=== PATIENT | male | born 1960 | race American Indian/Alaskan Native ===

== ENCOUNTER 2017-10-31 11:41 | Emergency (ER) | payer MEDICARE ==
[2017-10-31 12:50] LABS: Hematocrit 35.3 % (35.5-45.6); Hemoglobin 11.2 gm/dl (11.8-15.2); Mean Corpuscular HGB Conc 32 % (32-34); Mean Corpuscular Hemoglobin 27 pg (28-32); Mean Corpuscular Volume 84 fl (84-94); Platelet Count 132 K/mm3 (140-440)
[2017-10-31 12:52] LABS: Red Cell Distribution Width 29.4 % (13.2-15.2)
[2017-10-31 13:10] LABS: Albumin 4.3 g/dL (3.9-5); Calcium 8.8 mg/dL (8.4-10.2)
[2017-10-31] MEDS ORDERED: ZOFRAN ODT PO ONE (13:34)
--- NOTE | 2017-10-31 13:39 | Emergency Department Report ---
ED General Adult HPI - General Chief complaint: Nausea/Vomiting/Diarrhea Stated complaint: DIALYSIS Time Seen by Provider: 10/31/17 13:10 Source: patient Mode of arrival: Wheelchair Limitations: No Limitations - History of Present Illness Initial comments: This is a 57-year-old gentleman who is not known to this provider previously, who presents to the ER with a complaint of nausea that is now resolved, and requesting dialysis. He has no headache, neck pain, chest pain, abdominal pain or shortness of breath. He has no urinary symptoms. His nausea has resolved, and therefore does not radiate anywhere, and does not have exacerbating or relieving factors. He is visiting from out of town and does not have a local nephrology specialist. -: Gradual Consistency: now resolved Improves with: none Worsens with: none Associated Symptoms: nausea/vomiting. denies: confusion, chest pain, cough, diaphoresis, fever/chills, headaches, loss of appetite, malaise, rash, seizure, shortness of breath, syncope, weakness - Related Data Home Medications Medication Instructions Recorded Confirmed Last Taken Atorvastatin Calcium [Lipitor] 10 mg PO QHS 11/02/17 11/02/17 10/31/17 22:00 Calcium Acetate [Phoslo] 1,334 mg PO AC 11/02/17 11/02/17 10/31/17 Carvedilol [Coreg] 6.25 mg PO BID 11/02/17 11/02/17 10/31/17 Levothyroxine Sodium [Synthroid] 112 mcg PO QAM 11/02/17 11/02/17 11/02/17 08:40 hydrALAZINE [Apresoline] 50 mg PO BID 11/02/17 11/02/17 10/31/17 22:00 Previous Rx's Medication Instructions Recorded Last Taken Type Ondansetron [Zofran Odt] 4 mg PO Q8HR PRN #20 tab.rapdis 10/31/17 Unknown Rx Allergies Allergy/AdvReac Type Severity Reaction Status Date / Time Sulfa (Sulfonamide AdvReac Shortness Verified 10/31/17 11:51 Antibiotics) of Breath ED Review of Systems ROS: Stated complaint: DIALYSIS Other details as noted in HPI Comment: All other systems reviewed and negative ED Past Medical Hx - Past Medical History Previous Medical History?: Yes Hx Hypertension: Yes Hx Congestive Heart Failure: Yes Hx Renal Disease: Yes - Surgical History Past Surgical History?: Yes Additional Surgical History: AV fistula - Social History Smoking Status: Never Smoker Substance Use Type: None - Medications Home Medications: Home Medications Medication Instructions Recorded Confirmed Last Taken Type Ondansetron [Zofran Odt] 4 mg PO Q8HR PRN #20 tab.rapdis 10/31/17 11/02/17 Unknown Rx Atorvastatin Calcium [Lipitor] 10 mg PO QHS 11/02/17 11/02/17 10/31/17 22:00 History Calcium Acetate [Phoslo] 1,334 mg PO AC 11/02/17 11/02/17 10/31/17 History Carvedilol [Coreg] 6.25 mg PO BID 11/02/17 11/02/17 10/31/17 History Levothyroxine Sodium [Synthroid] 112 mcg PO QAM 11/02/17 11/02/17 11/02/17 08: 40 History hydrALAZINE [Apresoline] 50 mg PO BID 11/02/17 11/02/17 10/31/17 22:00 History ED Physical Exam - General Limitations: No Limitations General appearance: alert, in no apparent distress - Head Head exam: Present: atraumatic, normocephalic - Eye Eye exam: Present: normal appearance. Absent: nystagmus - ENT ENT exam: Present: normal exam, normal orophraynx, mucous membranes moist, normal external ear exam - Neck Neck exam: Present: normal inspection, full ROM. Absent: tenderness, meningismus - Respiratory Respiratory exam: Present: normal lung sounds bilaterally, other (there is a left-sided atrial pacer noted, with no redness, pus or streaking). Absent: respiratory distress, wheezes, rales, rhonchi, stridor, chest wall tenderness - Cardiovascular Cardiovascular Exam: Present: regular rate, normal rhythm, normal heart sounds. Absent: bradycardia, tachycardia, irregular rhythm, systolic murmur, diastolic murmur, rubs, gallop - GI/Abdominal GI/Abdominal exam: Present: soft, normal bowel sounds. Absent: distended, tenderness, guarding, rebound, rigid, pulsatile mass - Rectal Rectal exam: Present: deferred - Extremities Exam Extremities exam: Present: normal inspection, full ROM, other (there is an upper extremity graft with no redness, pus or streaking. Appropriate thrill is noted. It is nontender.). Absent: calf tenderness - Back Exam Back exam: Present: normal inspection, full ROM. Absent: tenderness, CVA tenderness (R), paraspinal tenderness, vertebral tenderness - Neurological Exam Neurological exam: Present: alert, oriented X3, CN II-XII intact, normal gait, other (Extraocular movements intact. Tongue midline. No facial droop. Facial sensation intact to light touch in the V1, V2, V3 distribution bilaterally. 5 and 5 strength in 4 extremities.. Sensation is intact to light touch in 4 extremities.). Absent: motor sensory deficit - Psychiatric Psychiatric exam: Present: normal affect, normal mood - Skin Skin exam: Present: warm, dry, intact, normal color. Absent: rash ED Course Vital Signs 10/31/17 10/31/17 11:48 14:32 Temperature 97.6 F Pulse Rate 98 H 95 H Respiratory 24 18 Rate Blood Pressure 141/105 Blood Pressure 134/97 [Left] O2 Sat by Pulse 98 96 Oximetry ED Medical Decision Making - Lab Data Result diagrams: 10/31/17 11:59 10/31/17 11:59 Vital Signs 10/31/17 11:48 Temperature 97.6 F Pulse Rate 98 H Respiratory 24 Rate Blood Pressure 141/105 O2 Sat by Pulse 98 Oximetry Lab Results 10/31/17 10/31/17 Range/Units 11:59 11:59 WBC 4.2 L (4.5-11.0) K/mm3 RBC 4.20 (3.65-5.03) M/mm3 Hgb 11.2 L (11.8-15.2) gm/dl Hct 35.3 L (35.5-45.6) % MCV 84 (84-94) fl MCH 27 L (28-32) pg MCHC 32 (32-34) % RDW 29.4 H (13.2-15.2) % Plt Count 132 L (140-440) K/mm3 Sodium 143 (137-145) mmol/L Potassium 4.3 (3.6-5.0) mmol/L Chloride 100.2 (98-107) mmol/L Carbon Dioxide 22 (22-30) mmol/L Anion Gap 25 mmol/L BUN 47 H (9-20) mg/dL Creatinine 8.5 H (0.8-1.5) mg/dL Estimated GFR 8 ml/min BUN/Creatinine Ratio 6 % Glucose 90 (75-100) mg/dL Calcium 8.8 (8.4-10.2) mg/dL Total Bilirubin 1.40 H (0.1-1.2) mg/dL AST 32 (5-40) units/L ALT 30 (7-56) units/L Alkaline Phosphatase 114 (35-129) units/L Total Protein 6.9 (6.3-8.2) g/dL Albumin 4.3 (3.9-5) g/dL Albumin/Globulin Ratio 1.7 % - EKG Data When compared to previous EKG there are: previous EKG unavailable 10/31/17 13:36 Atrial paced rhythm, 93 beats for minute, borderline rightward axis, good capture, VT interval appropriate, QTC prolonged, abnormal EKG, not morphologically consistent with STEMI - Medical Decision Making Differential diagnosis, including but not limited to, end-stage renal disease on dialysis, hyperkalemia, uremia, azotemia, chronic renal insufficiency Assessment and plan: 57-year-old gentleman who reports nausea that has now resolved. He is currently sleeping in his room when I go in to examine him. His laboratory studies do not demonstrate significant hyperkalemia, and he has evidence of chronic renal insufficiency. However he is not hypertensive he has no crackles or rales, he is saturating well, and he is not demonstrating signs of uremic encephalopathy. He is not a emergent dialysis at this time. His EKG demonstrates an atrial paced rhythm and he has no chest pain or abdominal pain currently. He will be discharged with Zofran and instructed to follow up with outpatient nephrology. There does not appear to be an emergent condition at this time. Critical care attestation.: If time is entered above; I have spent that time in minutes in the direct care of this critically ill patient, excluding procedure time. ED Disposition Clinical Impression: ESRD (end stage renal disease) Disposition: -01 TO HOME OR SELFCARE Is pt being admited?: No Does the pt Need Aspirin: No Condition: Stable Instructions: Chronic Kidney Disease (ED) Additional Instructions: Take the nausea medication as needed/directed. Follow up with any of the listed kidney doctors to arrange outpatient dialysis. Follow up within the next 3-5 days. Return to the ER right away with New pain, Worsening pain, migration of p fevers, chills, lethargy, irritability , projectile vomiting, change in mental status, confusion, inability to tolerate liquid feeds. Prescriptions: Ondansetron [Zofran Odt] 4 mg PO Q8HR PRN #20 tab.rapdis PRN Reason: Nausea Referrals: DONOVAN VIDAL MD [Staff Physician] - 3-5 Days OSMAN MARES MD [Staff Physician] - 3-5 Days
[2017-10-31 14:33] VITALS: BP 134/97
== END 2017-10-31 14:49 | disposition home or self-care (01) ==
LOC: ED 11:41
DX: I13.2 Hypertensive heart and chronic kidney disease with heart failure and with stage 5 chronic kidney disease, or end stage renal disease (principal); N18.6 End stage renal disease; I50.9 Heart failure, unspecified; Z99.2 Dependence on renal dialysis; Z88.2 Allergy status to sulfonamides
CPT/HCPCS: 36415; 80053; 85027; 93005; 93010; 99283; Q0162

== ENCOUNTER 2017-11-01 08:46 | Inpatient (IN) | payer MEDICARE ==
--- NOTE | 2017-11-01 11:04 | Emergency Department Report ---
HPI - General Chief Complaint: Dyspnea/Respdistress Time Seen by Provider: 11/01/17 10:48 - HPI HPI: Room 26 The patient is a 57-year-old male presents with the chief complaint of abdominal pain and missed dialysis. Patient states he came to the emergency department today because he noticed epigastric abdominal pain since yesterday as well. Patient describes the pain as a epigastric soreness with movement. The patient also states he's had a cough and rhinorrhea. Location: [See above] Duration: [See above] Quality: Soreness Severity: Moderate Modifying factors: Moving causes pain Context: [see above] Mode of transportation: [not driving] ED Past Medical Hx - Past Medical History Hx Hypertension: Yes Hx Congestive Heart Failure: Yes Hx Renal Disease: Yes - Surgical History Additional Surgical History: AV fistula - Family History Family history: no significant - Social History Smoking Status: Never Smoker Substance Use Type: None - Medications Home Medications: Home Medications Medication Instructions Recorded Confirmed Last Taken Type Ondansetron [Zofran Odt] 4 mg PO Q8HR PRN #20 tab.rapdis 10/31/17 Unknown Rx ED Review of Systems ROS: Stated complaint: PAIN WORSEN Other details as noted in HPI Constitutional: no symptoms reported Eyes: denies: eye pain ENT: other (rhinorrhea). denies: throat pain Respiratory: cough Cardiovascular: denies: chest pain Endocrine: no symptoms reported Gastrointestinal: abdominal pain Genitourinary: denies: testicular pain Musculoskeletal: denies: back pain Neurological: denies: headache Physical Exam - Physical Exam Vital Signs: Vital Signs 11/01/17 11/01/17 11/01/17 09:08 10:00 10:30 Temperature 97.6 F Pulse Rate 94 H 94 H 92 H Respiratory 31 H 27 H Rate Blood Pressure 140/102 150/115 147/113 O2 Sat by Pulse 96 100 97 Oximetry 11/01/17 10:47 Temperature Pulse Rate Respiratory 22 Rate Blood Pressure O2 Sat by Pulse 100 Oximetry Physical Exam: GENERAL: The patient is well-developed well-nourished male lying on stretcher not appearing to be in acute distress. [] HEENT: Normocephalic. Atraumatic. Extraocular motions are intact. Patient has moist mucous membranes. NECK: Supple. Trachea midline CHEST/LUNGS: Clear to auscultation. There is no respiratory distress noted. HEART/CARDIOVASCULAR: Regular. There is no tachycardia. There is no gallop rub or murmur. ABDOMEN: Abdomen is soft, with midepigastric tenderness to palpation. There is no rebound or guarding. Patient has normal bowel sounds. There is no abdominal distention. SKIN: There is no rash. There is no edema. There is no diaphoresis. NEURO: The patient is awake, alert, and oriented. The patient is cooperative. The patient has normal speech MUSCULOSKELETAL: There is no evidence of acute injury. ED Course Vital Signs 11/01/17 11/01/17 11/01/17 09:08 10:00 10:30 Temperature 97.6 F Pulse Rate 94 H 94 H 92 H Respiratory 31 H 27 H Rate Blood Pressure 140/102 150/115 147/113 O2 Sat by Pulse 96 100 97 Oximetry 11/01/17 10:47 Temperature Pulse Rate Respiratory 22 Rate Blood Pressure O2 Sat by Pulse 100 Oximetry - Consultations Consultation #1: 11/01/17 14:01 Nephrology paged ED Medical Decision Making - Lab Data Result diagrams: 11/01/17 11:51 11/01/17 11:51 Laboratory Tests 11/01/17 11/01/17 11/01/17 11:51 11:51 11:51 WBC 5.0 RBC 4.47 Hgb 11.8 Hct 37.6 MCV 84 MCH 26 L MCHC 31 L RDW 29.0 H Plt Count 148 Sodium 142 Potassium 6.1 H* D Chloride 94.3 L Carbon Dioxide 15 L D Anion Gap 39 BUN 58 H Creatinine 9.3 H Estimated GFR 7 BUN/Creatinine Ratio 6 Glucose 34 L* Calcium 8.7 Total Bilirubin 2.70 H AST 133 H ALT 83 H Alkaline Phosphatase 162 H Total Protein 7.0 Albumin 4.3 Albumin/Globulin Ratio 1.6 Amylase 113 Lipase 36 - EKG Data -: EKG Interpreted by Md Rate: normal - EKG Data When compared to previous EKG there are: previous EKG unavailable (paced rhythm. No peaked T waves.) Interpretation: nonspecific ST-T wave nitesh (T-wave inversion in lead 3) - Radiology Data Radiology results: report reviewed (CT abdomen and pelvis, chest x-ray), image reviewed (CT abdomen and pelvis, chest x-ray) FINAL REPORT EXAM: CT ABDOMEN PELVIS WO CON HISTORY: epigastric abdominal pain TECHNIQUE: CT of the abdomen and pelvis was performed without intravenous contrast. Reconstructions were included in the coronal and sagittal planes. PRIORS: None. FINDINGS: Lower thorax: There is a noncalcified right lower lobe 3 millimeter pulmonary nodule on series 2, image 10. Linear opacities are seen within the lingula. Trace pericardial fluid is seen. A cardiac pacemaker is seen. Multi chamber cardiac enlargement is noted. Liver: The liver is normal in attenuation. No intrahepatic biliary duct dilation. No focal hepatic lesions. Nodular contour of the liver is noted. The liver is enlarged measuring 22.7 centimeters. Gallbladder/ biliary system: Cholelithiasis is seen. There is pericholecystic fluid. No gallbladder wall thickening. The common bile duct appears nondilated. Spleen: No splenic lesions are seen. Pancreas: No pancreatic lesions are seen. No pancreatic duct dilation. Kidneys: Numerous probable simple bilateral renal cysts are seen. 5 millimeter hyper attenuating lesion is seen in the inferior pole of the left kidney likely representing a small hemorrhagic cyst. No hydronephrosis. No renal or ureteral calcifications. Adrenal glands: No adrenal masses. Vasculature: The abdominal aorta is nondilated. Atherosclerotic calculi are seen in the abdominal aorta. Lymph nodes : No enlarged lymph nodes are seen in the abdomen or pelvis. Bowel, mesentery, peritoneum: No bowel obstruction. There is a moderate to large volume of scattered ascites. No free air. A catheter is seen extending from the peritoneum to the spinal canal and terminates at the T11-12 level. There disruption of the catheter along the right flank subcutaneous tissues. The appendix is normal. No colonic diverticulosis. No bowel wall thickening. Urinary bladder: No filling defects are seen. Pelvis: Normal anatomy is noted. No masses. Abdominal wall: Bilateral fat containing inguinal hernias are seen. Body wall edema is seen. Focal area of soft tissue stranding in the right anterior abdominal wall may represent a site of injection or contusion. Bones: Degenerative changes are seen in the spine. Old right femoral fracture is noted with an old hardware tract within the right femur. IMPRESSION: 1. Findings concerning for hepatic cirrhosis with a moderate to large volume of scattered ascites. Hepatomegaly. 2. Cholelithiasis. Cannot completely exclude acute cholecystitis given the presence of pericholecystic fluid/ascites. 3. Numerous probable simple bilateral renal cysts. A single hyper attenuating lesion in the inferior pole of the left kidney likely represents a proteinaceous or hemorrhagic cyst. 4. Catheter extending from the spinal canal to the peritoneum with disruption of the catheter in the right flank. 5. Bilateral fat containing inguinal hernias. 6. Multi chamber cardiac enlargement and trace pericardial fluid. 7. Noncalcified 3 millimeter right lower lobe pulmonary nodule. Consider further evaluation with chest CT to exclude other nodules. Transcribed By: MG Dictated By: BILLY HERRMANN MD Electronically Authenticated By: BILLY HERRMANN MD Signed Date/Time: 11/01/171129 DD/ 29 TD/TT: 11/01/171129 - Differential Diagnosis incision renal disease, pancreatitis, volume overload Critical care attestation.: If time is entered above; I have spent that time in minutes in the direct care of this critically ill patient, excluding procedure time. ED Disposition Clinical Impression: ESRD (end stage renal disease), Hyperkalemia, Abdominal pain Disposition: OP ADMIT IP TO THIS HOSP Is pt being admited?: Yes Does the pt Need Aspirin: No Condition: Fair Time of Disposition: 14:23 (hospitalist notified (Dr. Landeros))
--- NOTE | 2017-11-01 11:36 | Cat Scan Report ---
FINAL REPORT EXAM: CT ABDOMEN PELVIS WO CON HISTORY: epigastric abdominal pain TECHNIQUE: CT of the abdomen and pelvis was performed without intravenous contrast. Reconstructions were included in the coronal and sagittal planes. PRIORS: None. FINDINGS: Lower thorax: There is a noncalcified right lower lobe 3 millimeter pulmonary nodule on series 2, image 10. Linear opacities are seen within the lingula. Trace pericardial fluid is seen. A cardiac pacemaker is seen. Multi chamber cardiac enlargement is noted. Liver: The liver is normal in attenuation. No intrahepatic biliary duct dilation. No focal hepatic lesions. Nodular contour of the liver is noted. The liver is enlarged measuring 22.7 centimeters. Gallbladder/ biliary system: Cholelithiasis is seen. There is pericholecystic fluid. No gallbladder wall thickening. The common bile duct appears nondilated. Spleen: No splenic lesions are seen. Pancreas: No pancreatic lesions are seen. No pancreatic duct dilation. Kidneys: Numerous probable simple bilateral renal cysts are seen. 5 millimeter hyper attenuating lesion is seen in the inferior pole of the left kidney likely representing a small hemorrhagic cyst. No hydronephrosis. No renal or ureteral calcifications. Adrenal glands: No adrenal masses. Vasculature: The abdominal aorta is nondilated. Atherosclerotic calculi are seen in the abdominal aorta. Lymph nodes: No enlarged lymph nodes are seen in the abdomen or pelvis. Bowel, mesentery, peritoneum: No bowel obstruction. There is a moderate to large volume of scattered ascites. No free air. A catheter is seen extending from the peritoneum to the spinal canal and terminates at the T11-12 level. There disruption of the catheter along the right flank subcutaneous tissues. The appendix is normal. No colonic diverticulosis. No bowel wall thickening. Urinary bladder: No filling defects are seen. Pelvis: Normal anatomy is noted. No masses. Abdominal wall: Bilateral fat containing inguinal hernias are seen. Body wall edema is seen. Focal area of soft tissue stranding in the right anterior abdominal wall may represent a site of injection or contusion. Bones: Degenerative changes are seen in the spine. Old right femoral fracture is noted with an old hardware tract within the right femur. IMPRESSION: 1. Findings concerning for hepatic cirrhosis with a moderate to large volume of scattered ascites. Hepatomegaly. 2. Cholelithiasis. Cannot completely exclude acute cholecystitis given the presence of pericholecystic fluid/ascites. 3. Numerous probable simple bilateral renal cysts. A single hyper attenuating lesion in the inferior pole of the left kidney likely represents a proteinaceous or hemorrhagic cyst. 4. Catheter extending from the spinal canal to the peritoneum with disruption of the catheter in the right flank. 5. Bilateral fat containing inguinal hernias. 6. Multi chamber cardiac enlargement and trace pericardial fluid. 7. Noncalcified 3 millimeter right lower lobe pulmonary nodule. Consider further evaluation with chest CT to exclude other nodules.
--- NOTE | 2017-11-01 12:12 | XRay Report ---
FINAL REPORT EXAM: XR CHEST 1V AP HISTORY: cough TECHNIQUE: Frontal chest radiograph. PRIORS: None. FINDINGS: A right chest port is present with the tip lying in the lower SVC. A left chest AICD is present. Cardiomegaly is noted. No pulmonary edema. Patchy left lower lobe opacities are seen. Probable calcified right mid lung granuloma is seen. No pleural effusion. No pneumothorax. No acute osseous abnormality. IMPRESSION: Left lower lobe atelectasis versus pneumonia. Cardiomegaly.
[2017-11-01 12:34] LABS: Hematocrit 37.6 % (35.5-45.6); Hemoglobin 11.8 gm/dl (11.8-15.2); Mean Corpuscular HGB Conc 31 % (32-34); Mean Corpuscular Hemoglobin 26 pg (28-32); Mean Corpuscular Volume 84 fl (84-94); Platelet Count 148 K/mm3 (140-440); Red Blood Count 4.47 M/mm3 (3.65-5.03)
[2017-11-01 12:56] LABS: Lipase 36 units/L (13-60)
[2017-11-01 13:00] LABS: Albumin 4.3 g/dL (3.9-5); Calcium 8.7 mg/dL (8.4-10.2)
[2017-11-01] MEDS ORDERED: D50W (25GM) Syringe IV ONE (13:59)
[2017-11-01] MEDS ORDERED: PROVENTIL IH ONE (14:00)
[2017-11-01 14:16] LABS: Anisocytosis 3+; Eosinophils % (Manual) 0 % (0.0-4.3); Total Cells Counted 100
[2017-11-01 14:17] LABS: Acanthocytes Few; Ovalocytes 1+; Platelet Estimate Cons; Poikilocytosis 2+; Tear Drop Cells Few
[2017-11-01] MEDS ORDERED: KIONEX PO ONE (14:24)
[2017-11-01] MEDS ORDERED: SODIUM BICARBONATE IV ONE ×2 (15:00→17:57)
[2017-11-01] MEDS ORDERED: PERCOCET 5/325 PO ONE (15:15)
[2017-11-01] MEDS ORDERED: PERCOCET 5/325 ONE (17:55)
[2017-11-01] MEDS ORDERED: KIONEX ONE (17:56)
--- NOTE | 2017-11-01 21:57 | History and Physical Report ---
History of Present Illness Date of examination: 11/01/17 Date of admission: 11/01/17 14:53 Medications and Allergies Allergies Allergy/AdvReac Type Severity Reaction Status Date / Time Sulfa (Sulfonamide AdvReac Shortness Verified 10/31/17 11:51 Antibiotics) of Breath Home Medications Medication Instructions Recorded Confirmed Last Taken Type Ondansetron [Zofran Odt] 4 mg PO Q8HR PRN #20 tab.donavandis 10/31/17 Unknown Rx Exam - Constitutional Vitals: Temp Pulse Resp BP Pulse Ox 97.6 F 91 H 18 159/107 100 11/01/17 09:08 11/01/17 16:00 11/01/17 18:02 11/01/17 16:00 11/01/17 16:00 Results - Labs CBC & Chem 7: 11/01/17 11:51 11/01/17 11:51 Labs: Laboratory Last Values WBC 5.0 K/mm3 (4.5-11.0) 11/01/17 11:51 RBC 4.47 M/mm3 (3.65-5.03) 11/01/17 11:51 Hgb 11.8 gm/dl (11.8-15.2) 11/01/17 11:51 Hct 37.6 % (35.5-45.6) 11/01/17 11:51 MCV 84 fl (84-94) 11/01/17 11:51 MCH 26 pg (28-32) L 11/01/17 11:51 MCHC 31 % (32-34) L 11/01/17 11:51 RDW 29.0 % (13.2-15.2) H 11/01/17 11:51 Plt Count 148 K/mm3 (140-440) 11/01/17 11:51 Add Manual Diff Complete 11/01/17 11:51 Total Counted 100 11/01/17 11:51 Seg Neuts % (Manual) 88.0 % (40.0-70.0) H 11/01/17 11:51 Band Neutrophils % 0 % 11/01/17 11:51 Lymphocytes % (Manual) 6.0 % (13.4-35.0) L 11/01/17 11:51 Reactive Lymphs % (Man) 0 % 11/01/17 11:51 Monocytes % (Manual) 4.0 % (0.0-7.3) 11/01/17 11:51 Eosinophils % (Manual) 0 % (0.0-4.3) 11/01/17 11:51 Basophils % (Manual) 2.0 % (0.0-1.8) H 11/01/17 11:51 Metamyelocytes % 0 % 11/01/17 11:51 Myelocytes % 0 % 11/01/17 11:51 Promyelocytes % 0 % 11/01/17 11:51 Blast Cells % 0 % 11/01/17 11:51 Nucleated RBC % Not Reportable 11/01/17 11:51 Seg Neutrophils # Man 4.4 K/mm3 (1.8-7.7) 11/01/17 11:51 Band Neutrophils # 0.0 K/mm3 11/01/17 11:51 Lymphocytes # (Manual) 0.3 K/mm3 (1.2-5.4) L 11/01/17 11:51 Abs React Lymphs (Man) 0.0 K/mm3 11/01/17 11:51 Monocytes # (Manual) 0.2 K/mm3 (0.0-0.8) 11/01/17 11:51 Eosinophils # (Manual) 0.0 K/mm3 (0.0-0.4) 11/01/17 11:51 Basophils # (Manual) 0.1 K/mm3 (0.0-0.1) 11/01/17 11:51 Metamyelocytes # 0.0 K/mm3 11/01/17 11:51 Myelocytes # 0.0 K/mm3 11/01/17 11:51 Promyelocytes # 0.0 K/mm3 11/01/17 11:51 Blast Cells # 0.0 K/mm3 11/01/17 11:51 WBC Morphology Not Reportable 11/01/17 11:51 Hypersegmented Neuts Not Reportable 11/01/17 11:51 Hyposegmented Neuts Not Reportable 11/01/17 11:51 Hypogranular Neuts Not Reportable 11/01/17 11:51 Smudge Cells Not Reportable 11/01/17 11:51 Toxic Granulation Not Reportable 11/01/17 11:51 Toxic Vacuolation Not Reportable 11/01/17 11:51 Dohle Bodies Not Reportable 11/01/17 11:51 Pelger-Huet Anomaly Not Reportable 11/01/17 11:51 Angelique Rods Not Reportable 11/01/17 11:51 Platelet Estimate Cons 11/01/17 11:51 Clumped Platelets Not Reportable 11/01/17 11:51 Plt Clumps, EDTA Not Reportable 11/01/17 11:51 Large Platelets Not Reportable 11/01/17 11:51 Giant Platelets Not Reportable 11/01/17 11:51 Platelet Satelliting Not Reportable 11/01/17 11:51 Plt Morphology Comment Not Reportable 11/01/17 11:51 RBC Morphology Not Reportable 11/01/17 11:51 Dimorphic RBCs Not Reportable 11/01/17 11:51 Polychromasia Not Reportable 11/01/17 11:51 Hypochromasia Not Reportable 11/01/17 11:51 Poikilocytosis 2+ 11/01/17 11:51 Anisocytosis 3+ 11/01/17 11:51 Microcytosis Not Reportable 11/01/17 11:51 Macrocytosis Not Reportable 11/01/17 11:51 Spherocytes Not Reportable 11/01/17 11:51 Pappenheimer Bodies Not Reportable 11/01/17 11:51 Sickle Cells Not Reportable 11/01/17 11:51 Target Cells Not Reportable 11/01/17 11:51 Tear Drop Cells Few 11/01/17 11:51 Ovalocytes 1+ 11/01/17 11:51 Helmet Cells Not Reportable 11/01/17 11:51 Mendoza-Saranac Bodies Not Reportable 11/01/17 11:51 [place] Rings Not Reportable 11/01/17 11:51 Cassandra Cells Not Reportable 11/01/17 11:51 Bite Cells Not Reportable 11/01/17 11:51 Crenated Cell Not Reportable 11/01/17 11:51 Elliptocytes 1+ 11/01/17 11:51 Acanthocytes (Spur) Few 11/01/17 11:51 Rouleaux Not Reportable 11/01/17 11:51 Hemoglobin C Crystals Not Reportable 11/01/17 11:51 Schistocytes Not Reportable 11/01/17 11:51 Malaria parasites Not Reportable 11/01/17 11:51 Blake Bodies Not Reportable 11/01/17 11:51 Hem Pathologist Commnt No 11/01/17 11:51 Sodium 142 mmol/L (137-145) 11/01/17 11:51 Potassium 6.1 mmol/L (3.6-5.0) H* D 11/01/17 11:51 Chloride 94.3 mmol/L (98-107) L 11/01/17 11:51 Carbon Dioxide 15 mmol/L (22-30) L D 11/01/17 11:51 Anion Gap 39 mmol/L 11/01/17 11:51 BUN 58 mg/dL (9-20) H 11/01/17 11:51 Creatinine 9.3 mg/dL (0.8-1.5) H 11/01/17 11:51 Estimated GFR 7 ml/min 11/01/17 11:51 BUN/Creatinine Ratio 6 % 11/01/17 11:51 Glucose 34 mg/dL (75-100) L* 11/01/17 11:51 POC Glucose 41 (70-105) L 11/01/17 16:44 Calcium 8.7 mg/dL (8.4-10.2) 11/01/17 11:51 Total Bilirubin 2.70 mg/dL (0.1-1.2) H 11/01/17 11:51 AST 133 units/L (5-40) H 11/01/17 11:51 ALT 83 units/L (7-56) H 11/01/17 11:51 Alkaline Phosphatase 162 units/L (35-129) H 11/01/17 11:51 Total Protein 7.0 g/dL (6.3-8.2) 11/01/17 11:51 Albumin 4.3 g/dL (3.9-5) 11/01/17 11:51 Albumin/Globulin Ratio 1.6 % 11/01/17 11:51 Amylase 113 units/L (27-131) 11/01/17 11:51 Lipase 36 units/L (13-60) 11/01/17 11:51
[2017-11-01] MEDS ORDERED: ZOFRAN IV PRN (23:02)
[2017-11-01] MEDS ORDERED: REGLAN IV PRN (23:02)
[2017-11-01] MEDS ORDERED: SODIUM CHLORIDE FLUSH SYRINGE 10 ML IV PRN (23:02)
[2017-11-01] MEDS ORDERED: MORPHINE IV PRN (23:02)
[2017-11-01] MEDS ORDERED: TYLENOL PO PRN (23:02)
[2017-11-02] MEDS: PERCOCET 5/325 PO PRN (02:30)
--- NOTE | 2017-11-02 07:19 | Event Note ---
Date: 11/01/17 See dictated H/p in reports Volume overloas Missed HD Patient from [place] visiting [place] for Patient maybe discharged after HD so that he can f/u in [place] for reg HD
[2017-11-02] MEDS ORDERED: NACL 0.9% 100 ML IV PRN (08:37)
[2017-11-02 08:51] LABS: Hematocrit 34.6 % (35.5-45.6); Hemoglobin 11.1 gm/dl (11.8-15.2); Mean Corpuscular HGB Conc 32 % (32-34); Mean Corpuscular Hemoglobin 26 pg (28-32); Mean Corpuscular Volume 82 fl (84-94); Platelet Count 134 K/mm3 (140-440); Red Blood Count 4.19 M/mm3 (3.65-5.03)
[2017-11-02 08:52] LABS: Red Cell Distribution Width 28.8 % (13.2-15.2)
--- NOTE | 2017-11-02 09:10 | Progress Note ---
Assessment and Plan Patient from [place] visiting [place] for . Doug his HD Patient maybe discharged after HD so that he can f/u in [place] for reg HD - ESRD (end stage renal disease) Current Visit: Yes Status: Acute Plan to address problem: On Thursday, Thursday and Thursday schedule. Awaiting out pt HD placement - Metabolic acidosis Current Visit: Yes Status: Acute Plan to address problem: Hemodialysis for solute clearance and then reevaluate - Right lower lobe pulmonary nodule Current Visit: Yes Status: Acute Plan to address problem: No Leukocytosis or fever. Commence pt on Azithromycin - Cirrhosis of liver with ascites Current Visit: Yes Status: Acute Plan to address problem: Will check Ammonia level. commenced pt on lactulose. to f/u with GI - Abdominal pain Current Visit: Yes Status: Acute Plan to address problem: CT scan nondiagnostic. Further management per primary attending. - Hyperkalemia Current Visit: Yes Status: Acute Plan to address problem: Treated medically last night. Dialyze on a 2 K bath today Subjective Date of service: 11/02/17 Principal diagnosis: right lober pneumonia, liver Cirrhosisd, metabolic acidosis Interval history: Pty seen and examined. No new complaint. In no obvious distress Objective - Constitutional Vitals: Vital Signs - 12hr 11/01/17 11/01/17 11/01/17 21:22 21:32 23:59 Temperature 97.8 F Pulse Rate 90 Respiratory 18 Rate Blood Pressure 159/107 159/107 132/93 O2 Sat by Pulse 92 Oximetry 11/02/17 05:48 Temperature 98.6 F Pulse Rate 90 Respiratory 16 Rate Blood Pressure 125/88 O2 Sat by Pulse 95 Oximetry General appearance: Present: no acute distress, well-nourished - EENT Eyes: PERRL, EOM intact - Neck Neck: supple, normal ROM - Respiratory Respiratory effort: normal Respiratory: bilateral: CTA - Cardiovascular Rhythm: regular Heart Sounds: Present: S1 & S2. Absent: gallop, rub Extremities: pulses intact, No edema, normal color, Full ROM - Gastrointestinal General gastrointestinal: Present: soft, non-tender, non-distended, normal bowel sounds - Integumentary Integumentary: clear, warm, dry - Musculoskeletal Musculoskeletal: 1, strength equal bilaterally - Neurologic Neurologic: moves all extremities - Psychiatric Psychiatric: appropriate mood/affect - Labs CBC & Chem 7: 11/02/17 08:20 11/02/17 08:20 Labs: Abnormal lab results 11/01/17 11/01/17 11/01/17 Range/Units 11:51 11:51 14:29 WBC (4.5-11.0) K/mm3 Hgb (11.8-15.2) gm/dl Hct (35.5-45.6) % MCV (84-94) fl MCH 26 L (28-32) pg MCHC 31 L (32-34) % RDW 29.0 H (13.2-15.2) % Plt Count (140-440) K/mm3 Seg Neuts % (Manual) 88.0 H (40.0-70.0) % Lymphocytes % (Manual) 6.0 L (13.4-35.0) % Basophils % (Manual) 2.0 H (0.0-1.8) % Lymphocytes # (Manual) 0.3 L (1.2-5.4) K/mm3 Potassium 6.1 H* D (3.6-5.0) mmol/L Chloride 94.3 L (98-107) mmol/L Carbon Dioxide 15 L D (22-30) mmol/L BUN 58 H (9-20) mg/dL Creatinine 9.3 H (0.8-1.5) mg/dL Glucose 34 L* (75-100) mg/dL POC Glucose < 40 L (70-105) Total Bilirubin 2.70 H (0.1-1.2) mg/dL AST 133 H (5-40) units/L ALT 83 H (7-56) units/L Alkaline Phosphatase 162 H (35-129) units/L 11/01/17 11/02/17 Range/Units 16:44 08:20 WBC 3.9 L (4.5-11.0) K/mm3 Hgb 11.1 L (11.8-15.2) gm/dl Hct 34.6 L (35.5-45.6) % MCV 82 L (84-94) fl MCH 26 L (28-32) pg MCHC (32-34) % RDW 28.8 H (13.2-15.2) % Plt Count 134 L (140-440) K/mm3 Seg Neuts % (Manual) (40.0-70.0) % Lymphocytes % (Manual) (13.4-35.0) % Basophils % (Manual) (0.0-1.8) % Lymphocytes # (Manual) (1.2-5.4) K/mm3 Potassium (3.6-5.0) mmol/L Chloride (98-107) mmol/L Carbon Dioxide (22-30) mmol/L BUN (9-20) mg/dL Creatinine (0.8-1.5) mg/dL Glucose (75-100) mg/dL POC Glucose 41 L (70-105) Total Bilirubin (0.1-1.2) mg/dL AST (5-40) units/L ALT (7-56) units/L Alkaline Phosphatase (35-129) units/L
[2017-11-02 09:18] LABS: Albumin 4.2 g/dL (3.9-5)
--- NOTE | 2017-11-02 09:35 | History and Physical Report ---
CHIEF COMPLAINT: Missed dialysis and shortness of breath. HISTORY OF PRESENT ILLNESS: A 57-year-old male from [place] coming here for of a close relative, missed dialysis for last 1 week. The patient has been having some shortness of breath and abdominal discomfort. Also cough present. Shortness of breath on minimal exertion. No chest pain. PAST MEDICAL HISTORY: Significant for hypertension, congestive heart failure, end-stage renal disease, on dialysis. PAST SURGICAL HISTORY: AV fistula. FAMILY HISTORY: Hypertension. SOCIAL HISTORY: Does not smoke. No alcohol, no recreational drugs. REVIEW OF SYSTEMS: Significant for shortness of breath on minimal exertion and abdominal discomfort. Otherwise, review of systems negative. PHYSICAL EXAMINATION: GENERAL: Middle-aged male, cooperative during examination. VITAL SIGNS: Blood pressure 140/102, temperature 97, pulse is 94, respirations are 30. HEENT: Unremarkable. Pupils equal and reactive. NECK: Supple, no lymphadenopathy, no thyromegaly. LUNGS: Clear to auscultation and percussion. Good air entry. CARDIOVASCULAR: S1, S2 heard. No gallop, no murmur, no rub. Apical impulse in left fifth intercostal space and midclavicular line. ABDOMEN: Soft and benign. No hepatosplenomegaly. No guarding, no rigidity. Hernial orifices are normal. EXTREMITIES: Good pedal pulses. No pedal edema. AV fistula, good thrill present. LABORATORY DATA: Significant for white count of 5000, H and H of 11.8 and 37.6, platelet count of 148,000. Sodium is 142, potassium is 6.1, BUN and creatinine is 58 and 9.3, bicarb is 15, initial glucose was 34. A1c is 4.6. AST is 133, ALT is 83, alkaline phosphatase is 152. Chest x-ray shows doubtful left lower lobe atelectasis versus pneumonia. CT of the abdomen findings concerning for hepatic cirrhosis, large amount of scattered ascites, cholelithiasis, multiple small renal cysts. Catheter extending from the spinal canal to the peritoneum with destruction of the catheter in the right flank, bilateral fat containing inguinal hernias. Right lower lobe 3 mm pulmonary nodule. ASSESSMENT AND PLAN: 1. Volume overload secondary to missed hemodialysis. The patient needs emergent hemodialysis as nephrology pediatric nurse practitioner consulted, Dr. Danilo Roman. 2. Hypoglycemia, corrected in the ER. 3. Hyperkalemia. The patient was given sodium bicarbonate and Kayexalate. 4. Transaminitis, probably secondary to developing cirrhosis and hepatitis. The abdominal CT shows cirrhosis. 5. Hypertension. Continue antihypertensives. 6. Congestive heart failure. I increased ultrafiltration as necessary. 7. Deep venous thrombosis prophylaxis, heparin 5000 q. 12. JOB# [id number] VSM/NTS
[2017-11-02] MEDS: PEPCID PO SCH ×2 (10:00→22:12)
[2017-11-02] MEDS ORDERED: COZAAR PO SCH (10:00)
--- NOTE | 2017-11-02 10:09 | Consultation ---
History of Present Illness - Reason for Consult Consult date: 11/02/17 end stage renal disease, hyperkalemia Requesting physician: TRACI PERRIN - History of Present Illness 57-year-old male with a history of hypertension, end-stage renal disease on hemodialysis on the Thursday, Thursday, Thursday schedule. Patient is visiting from [place]. His mother and he came for the . He last received dialysis on Thursday. Present presented to the hospital with a one-day history of abdominal pain which was in the periumbilical area, it was sharp and nonradiating. Pain is intermittent and aggravated by movement and with only relief being pain medication. Patient had similar pain in the past at which time he was found to be constipated. He also admits to a dry cough with rhinorrhea with chills but no fever. He admits to constipation and diminished appetite. No hematemesis, melena or hematochezia. Past History Past Medical History: heart failure, hypertension, renal failure Past Surgical History: Other (RUE AV graft, Lumbo-Peritoneal shunt) Social history: Lives alone, other ([employer]. 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 denies: smoking, alcohol abuse, prescription drug abuse, IV drug use Family history: CAD (father of heart attack it at age 43), hypertension, other (mother had congestive heart failure and chronic kidney disease before she . One brother also has chronic kidney disease) Medications and Allergies Allergies Allergy/AdvReac Type Severity Reaction Status Date / Time Sulfa (Sulfonamide AdvReac Shortness Verified 10/31/17 11:51 Antibiotics) of Breath Home Medications Medication Instructions Recorded Confirmed Last Taken Type Ondansetron [Zofran Odt] 4 mg PO Q8HR PRN #20 tab.rapdis 10/31/17 11/02/17 Unknown Rx Atorvastatin Calcium [Lipitor] 10 mg PO QHS 11/02/17 11/02/17 10/31/17 22:00 History Calcium Acetate [Phoslo] 1,334 mg PO AC 11/02/17 11/02/17 10/31/17 History Carvedilol [Coreg] 6.25 mg PO BID 11/02/17 11/02/17 10/31/17 History Levothyroxine Sodium [Synthroid] 112 mcg PO QAM 11/02/17 11/02/17 11/02/17 08: 40 History hydrALAZINE [Apresoline] 50 mg PO BID 11/02/17 11/02/17 10/31/17 22:00 History Active Meds: Active Medications Acetaminophen (Tylenol) 650 mg PO Q4H PRN PRN Reason: Pain MILD(1-3)/Fever >100.5/ERAZO Famotidine (Pepcid) 10 mg PO BID REPLACED BY [facility] Heparin Sodium (Porcine) (Heparin 10,000 Units/10 Ml) 1,000 unit IV DAVEY PRN PRN Reason: hemodialysis Sodium Chloride (Nacl 0.9%) 100 mls @ 999 mls/hr IV DAVEY PRN PRN Reason: Hypotension Losartan Potassium (Cozaar) 100 mg PO QDAY ROHIT Metoclopramide HCl (Reglan) 5 mg IV Q6H PRN PRN Reason: Nausea And Vomiting Morphine Sulfate (Morphine) 2 mg IV Q4H PRN PRN Reason: Pain, Moderate (4-6) Ondansetron HCl (Zofran) 4 mg IV Q8H PRN PRN Reason: Nausea And Vomiting Oxycodone/Acetaminophen (Percocet 5/325) 1 tab PO Q6H PRN PRN Reason: Pain, Moderate (4-6) Last Admin: 11/02/17 02:30 Dose: 1 tab Sodium Chloride (Sodium Chloride Flush Syringe 10 Ml) 10 ml IV BID ROHIT Sodium Chloride (Sodium Chloride Flush Syringe 10 Ml) 10 ml IV PRN PRN PRN Reason: LINE FLUSH Review of Systems All systems: negative (Constitutional: no fever or chills. No anorexia or weight loss. HEENT: No sore throat but admits to sinus drainage no hearing or vision impairment . Cardiovascular: No chest pain, admits to shortness of breath. No Palpitations, lower extremity swelling or dizziness. Respiratory: Admits to cough. No sputum, shortness of breath, hemoptysis or wheezing. Gastrointestinal: No nausea, vomiting, see history of present illness. No Hematemesis or melena. Admits to bloody stools attributed to hemorrhoids Genitourinary: No frequency urgency dysuria or hematuria. Urinalysis however is diminished hematologic: No abnormal bleeding or bruising. Integumentary: no pruritus but admits to rash right groin Neurological: No headache no focal weakness or numbness, no syncope or seizures. Endocrine: Admits to both heat and cold intolerance Musculoskeletal: No joint pains no stiffness. Psychiatry: no anxiety or depression) Exam - Vital Signs Vital signs: Vital Signs Temp Pulse BP Pulse Ox 97.6 F 94 H 140/102 96 11/01/17 09:08 11/01/17 09:08 11/01/17 09:08 11/01/17 09:08 - Physical Exam Narrative exam: Middle-age -[place] male lying in bed in no acute distress HEENT: NCAT, pink oral mucous membrane Neck: Supple, no venous distention CVS: S1S2 RRR with no murmur, rub or gallop Chest: Clear to auscultation Abdomen: Protuberant, soft, nontender, no organomegaly, bowel sounds are present Extremities: No edema, no clubbing, right upper extremity Av graft with good thrill and bruit Skin warm and dry, hyperpigmented patches and plaques in right groin and lower extremities Genoto-urinary deferred Neuro: Awake, alert no focal deficits Results - Lab Results 11/02/17 08:20 11/02/17 08:20 Most recent lab results Calcium 8.0 mg/dL (8.4-10.2) L 11/02/17 08:20 Assessment and Plan - Patient Problems (1) Metabolic acidosis Current Visit: Yes Status: Acute Plan to address problem: Hemodialysis for solute clearance and then reevaluate (2) Right lower lobe pulmonary nodule Current Visit: Yes Status: Acute Plan to address problem: Will need CT scan of the chest to evaluate right bundle pulmonary nodules. Defer to primary attending (3) Cirrhosis of liver with ascites Current Visit: Yes Status: Acute Plan to address problem: Needs follow-up with puddler pile driving. This can be done as an outpatient but with the abdominal pain may need to consult GI and consider paracentesis if fluid enough to be tapped (4) Abdominal pain Current Visit: Yes Status: Acute Plan to address problem: CT scan nondiagnostic. Further management per primary attending. (5) ESRD (end stage renal disease) Current Visit: Yes Status: Acute Plan to address problem: Hemodialysis today and then on a Thursday, Thursday and Thursday schedule. Attempt 2liters fluid removal. (6) Hyperkalemia Current Visit: Yes Status: Acute Plan to address problem: Treated medically last night. Dialyze on a 2 K bath today
--- NOTE | 2017-11-02 10:19 | Progress Note ---
Subjective Date of service: 11/02/17 Objective - Constitutional Vitals: Vital Signs - 12hr 11/01/17 11/02/17 23:59 05:48 Temperature 97.8 F 98.6 F Pulse Rate 90 90 Respiratory 18 16 Rate Blood Pressure 132/93 125/88 O2 Sat by Pulse 92 95 Oximetry - Labs CBC & Chem 7: 11/02/17 08:20 11/02/17 08:20 Labs: Abnormal lab results 11/01/17 11/01/17 11/01/17 Range/Units 11:51 11:51 14:29 WBC (4.5-11.0) K/mm3 Hgb (11.8-15.2) gm/dl Hct (35.5-45.6) % MCV (84-94) fl MCH 26 L (28-32) pg MCHC 31 L (32-34) % RDW 29.0 H (13.2-15.2) % Plt Count (140-440) K/mm3 Seg Neuts % (Manual) 88.0 H (40.0-70.0) % Lymphocytes % (Manual) 6.0 L (13.4-35.0) % Basophils % (Manual) 2.0 H (0.0-1.8) % Lymphocytes # (Manual) 0.3 L (1.2-5.4) K/mm3 Potassium 6.1 H* D (3.6-5.0) mmol/L Chloride 94.3 L (98-107) mmol/L Carbon Dioxide 15 L D (22-30) mmol/L BUN 58 H (9-20) mg/dL Creatinine 9.3 H (0.8-1.5) mg/dL Glucose 34 L* (75-100) mg/dL POC Glucose < 40 L (70-105) Calcium (8.4-10.2) mg/dL Total Bilirubin 2.70 H (0.1-1.2) mg/dL AST 133 H (5-40) units/L ALT 83 H (7-56) units/L Alkaline Phosphatase 162 H (35-129) units/L 11/01/17 11/02/17 11/02/17 Range/Units 16:44 08:20 08:20 WBC 3.9 L (4.5-11.0) K/mm3 Hgb 11.1 L (11.8-15.2) gm/dl Hct 34.6 L (35.5-45.6) % MCV 82 L (84-94) fl MCH 26 L (28-32) pg MCHC (32-34) % RDW 28.8 H (13.2-15.2) % Plt Count 134 L (140-440) K/mm3 Seg Neuts % (Manual) (40.0-70.0) % Lymphocytes % (Manual) (13.4-35.0) % Basophils % (Manual) (0.0-1.8) % Lymphocytes # (Manual) (1.2-5.4) K/mm3 Potassium (3.6-5.0) mmol/L Chloride 95.2 L (98-107) mmol/L Carbon Dioxide 17 L (22-30) mmol/L BUN 62 H (9-20) mg/dL Creatinine 9.6 H (0.8-1.5) mg/dL Glucose 113 H (75-100) mg/dL POC Glucose 41 L (70-105) Calcium 8.0 L (8.4-10.2) mg/dL Total Bilirubin 2.50 H (0.1-1.2) mg/dL AST 81 H (5-40) units/L ALT 76 H (7-56) units/L Alkaline Phosphatase 157 H (35-129) units/L
[2017-11-02] MEDS: HEPARIN 10,000 UNITS/10 ML IV PRN (10:30)
[2017-11-02 12:48] LABS: Total Cells Counted 100
[2017-11-02 12:49] LABS: Anisocytosis 1+
[2017-11-02 12:50] LABS: Acanthocytes Few; Platelet Estimate Consistent w Auto
[2017-11-02] MEDS: SODIUM CHLORIDE FLUSH SYRINGE 10 ML IV SCH ×2 (15:25→22:12)
[2017-11-02] MEDS: PHOSLO PO SCH (22:11)
[2017-11-02] MEDS: APRESOLINE PO SCH (22:11)
[2017-11-02] MEDS: COREG PO SCH (22:11)
[2017-11-03] MEDS: PERCOCET 5/325 PO PRN ×2 (03:47→23:21)
[2017-11-03] MEDS: SYNTHROID PO SCH (06:03)
[2017-11-03 06:36] LABS: Hematocrit 33.5 % (35.5-45.6); Hemoglobin 10.9 gm/dl (11.8-15.2); Mean Corpuscular HGB Conc 33 % (32-34); Mean Corpuscular Hemoglobin 27 pg (28-32); Mean Corpuscular Volume 82 fl (84-94); Platelet Count 132 K/mm3 (140-440); Red Blood Count 4.11 M/mm3 (3.65-5.03)
[2017-11-03 06:44] LABS: Red Cell Distribution Width 29.1 % (13.2-15.2)
[2017-11-03 07:01] LABS: Albumin 3.4 g/dL (3.9-5); Calcium 8.3 mg/dL (8.4-10.2)
[2017-11-03] MEDS: APRESOLINE PO SCH ×2 (09:38→23:16)
[2017-11-03] MEDS: PHOSLO PO SCH ×3 (09:38→17:52)
[2017-11-03] MEDS: PEPCID PO SCH ×2 (09:39→23:15)
[2017-11-03] MEDS: COREG PO SCH ×2 (09:39→23:15)
[2017-11-03] MEDS: SODIUM CHLORIDE FLUSH SYRINGE 10 ML IV SCH ×2 (09:39→23:17)
--- NOTE | 2017-11-03 12:43 | Progress Note ---
Assessment and Plan Assessment and plan: Patient is a 57 yo man with a history of ESRD on hemodialysis, CHF, Anemia and hypertension who pw abd pains and missing hemodialysis. He is from [place] and visiting the [place] area for his mother's but wants to stay in the area ; so Hemodialysis setup is pending. * CT abd/pelvis without contrast IMPRESSION: 1. Findings concerning for hepatic cirrhosis with a moderate to large volume of scattered ascites. Hepatomegaly. 2. Cholelithiasis. Cannot completely exclude acute cholecystitis given the presence of pericholecystic fluid/ascites. 3. Numerous probable simple bilateral renal cysts. A single hyper attenuating lesion in the inferior pole of the left kidney likely represents a proteinaceous or hemorrhagic cyst. 4. Catheter extending from the spinal canal to the peritoneum with disruption of the catheter in the right flank. 5. Bilateral fat containing inguinal hernias. 6. Multi chamber cardiac enlargement and trace pericardial fluid. 7. Noncalcified 3 millimeter right lower lobe pulmonary nodule. Consider further evaluation with chest CT to exclude other nodules. * pCXR IMPRESSION: Left lower lobe atelectasis versus pneumonia. Cardiomegaly. ESRD on hemodialysis: renal is following, HD MWF, Awaiting out pt HD placement Metabolic acidosis due to renal failure: HD as scheduled Right lower lobe pulmonary nodule: No Leukocytosis or fever. 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 Follow-up on current diagnosis of abd pains, cough which has resolved. Overnight uneventful. Patient denies any chest pain, shortness breath, nausea/vomiting or severe headaches. Imaging, nursing note, chart, labs and old chart reviewed. Discussed with patient. Hospitalist Physical - Physical exam Narrative exam: GEN: WDWN, NAD, Awake, Alert, Orientated x 3 HEENT: NCAT, EOMI, PERRL, OP Clear NECK: supple, no adenopathy, no thyromegaly, no JVD CVS/HEART: RRR, normal S1S2, pulses present bilaterally CHEST/LUNGS: Symmetrical chest expansion, good air entry bilaterally GI/Abdomen: mildly distended but soft and nontender, good bowel sounds, no guarding or rebound /Bladder: no suprapubic tenderness, no CVA or paraspinal tenderness EXT/Skin: no c/c/e, no obvious rash MSK: FROM x 4 Neuro: CN 2-12 grossly intact, no new focal deficits Psych: calm but sad, denies SI, HI - Constitutional Vitals: Temp Pulse Resp BP Pulse Ox 98.0 F 81 18 129/86 97 11/03/17 05:29 11/03/17 05:29 11/03/17 05:29 11/03/17 05:29 11/03/17 05:29 General appearance: Present: no acute distress, well-nourished Results - Labs CBC & Chem 7: 11/03/17 05:50 11/03/17 05:50 Labs: Laboratory Last Values WBC 5.2 K/mm3 (4.5-11.0) 11/03/17 05:50 RBC 4.11 M/mm3 (3.65-5.03) 11/03/17 05:50 Hgb 10.9 gm/dl (11.8-15.2) L 11/03/17 05:50 Hct 33.5 % (35.5-45.6) L 11/03/17 05:50 MCV 82 fl (84-94) L 11/03/17 05:50 MCH 27 pg (28-32) L 11/03/17 05:50 MCHC 33 % (32-34) 11/03/17 05:50 RDW 29.1 % (13.2-15.2) H 11/03/17 05:50 Plt Count 132 K/mm3 (140-440) L 11/03/17 05:50 Add Manual Diff Complete 11/02/17 08:20 Total Counted 100 11/02/17 08:20 Seg Neuts % (Manual) 75.0 % (40.0-70.0) H 11/02/17 08:20 Band Neutrophils % 0 % 11/02/17 08:20 Lymphocytes % (Manual) 19.0 % (13.4-35.0) 11/02/17 08:20 Reactive Lymphs % (Man) 0 % 11/02/17 08:20 Monocytes % (Manual) 4.0 % (0.0-7.3) 11/02/17 08:20 Eosinophils % (Manual) 1.0 % (0.0-4.3) 11/02/17 08:20 Basophils % (Manual) 1.0 % (0.0-1.8) 11/02/17 08:20 Metamyelocytes % 0 % 11/02/17 08:20 Myelocytes % 0 % 11/02/17 08:20 Promyelocytes % 0 % 11/02/17 08:20 Blast Cells % 0 % 11/02/17 08:20 Nucleated RBC % Not Reportable 11/02/17 08:20 Seg Neutrophils # Man 2.9 K/mm3 (1.8-7.7) 11/02/17 08:20 Band Neutrophils # 0.0 K/mm3 11/02/17 08:20 Lymphocytes # (Manual) 0.7 K/mm3 (1.2-5.4) L 11/02/17 08:20 Abs React Lymphs (Man) 0.0 K/mm3 11/02/17 08:20 Monocytes # (Manual) 0.2 K/mm3 (0.0-0.8) 11/02/17 08:20 Eosinophils # (Manual) 0.0 K/mm3 (0.0-0.4) 11/02/17 08:20 Basophils # (Manual) 0.0 K/mm3 (0.0-0.1) 11/02/17 08:20 Metamyelocytes # 0.0 K/mm3 11/02/17 08:20 Myelocytes # 0.0 K/mm3 11/02/17 08:20 Promyelocytes # 0.0 K/mm3 11/02/17 08:20 Blast Cells # 0.0 K/mm3 11/02/17 08:20 WBC Morphology Not Reportable 11/02/17 08:20 Hypersegmented Neuts Not Reportable 11/02/17 08:20 Hyposegmented Neuts Not Reportable 11/02/17 08:20 Hypogranular Neuts Not Reportable 11/02/17 08:20 Smudge Cells Not Reportable 11/02/17 08:20 Toxic Granulation Not Reportable 11/02/17 08:20 Toxic Vacuolation Not Reportable 11/02/17 08:20 Dohle Bodies Not Reportable 11/02/17 08:20 Pelger-Huet Anomaly Not Reportable 11/02/17 08:20 Angelique Rods Not Reportable 11/02/17 08:20 Platelet Estimate Consistent w auto 11/02/17 08:20 Clumped Platelets Not Reportable 11/02/17 08:20 Plt Clumps, EDTA Not Reportable 11/02/17 08:20 Large Platelets Not Reportable 11/02/17 08:20 Giant Platelets Not Reportable 11/02/17 08:20 Platelet Satelliting Not Reportable 11/02/17 08:20 Plt Morphology Comment Not Reportable 11/02/17 08:20 RBC Morphology Not Reportable 11/02/17 08:20 Dimorphic RBCs Not Reportable 11/02/17 08:20 Polychromasia Not Reportable 11/02/17 08:20 Hypochromasia Not Reportable 11/02/17 08:20 Poikilocytosis Not Reportable 11/02/17 08:20 Anisocytosis 1+ 11/02/17 08:20 Microcytosis Not Reportable 11/02/17 08:20 Macrocytosis Not Reportable 11/02/17 08:20 Spherocytes Not Reportable 11/02/17 08:20 Pappenheimer Bodies Not Reportable 11/02/17 08:20 Sickle Cells Not Reportable 11/02/17 08:20 Target Cells Not Reportable 11/02/17 08:20 Tear Drop Cells Not Reportable 11/02/17 08:20 Ovalocytes Not Reportable 11/02/17 08:20 Helmet Cells Not Reportable 11/02/17 08:20 Mendoza-Noyack Bodies Not Reportable 11/02/17 08:20 [place] Rings Not Reportable 11/02/17 08:20 Cassandra Cells Not Reportable 11/02/17 08:20 Bite Cells Not Reportable 11/02/17 08:20 Crenated Cell Not Reportable 11/02/17 08:20 Elliptocytes Few 11/02/17 08:20 Acanthocytes (Spur) Few 11/02/17 08:20 Rouleaux Not Reportable 11/02/17 08:20 Hemoglobin C Crystals Not Reportable 11/02/17 08:20 Schistocytes Not Reportable 11/02/17 08:20 Malaria parasites Not Reportable 11/02/17 08:20 Blake Bodies Not Reportable 11/02/17 08:20 Hem Pathologist Commnt No 11/02/17 08:20 Sodium 137 mmol/L (137-145) 11/03/17 05:50 Potassium 4.0 mmol/L (3.6-5.0) 11/03/17 05:50 Chloride 95.6 mmol/L (98-107) L 11/03/17 05:50 Carbon Dioxide 25 mmol/L (22-30) D 11/03/17 05:50 Anion Gap 20 mmol/L 11/03/17 05:50 BUN 40 mg/dL (9-20) H 11/03/17 05:50 Creatinine 7.3 mg/dL (0.8-1.5) H 11/03/17 05:50 Estimated GFR 9 ml/min 11/03/17 05:50 BUN/Creatinine Ratio 5 % 11/03/17 05:50 Glucose 73 mg/dL (75-100) L 11/03/17 05:50 POC Glucose 41 (70-105) L 11/01/17 16:44 Hemoglobin A1c 4.6 % (4-6) 11/01/17 Unknown Calcium 8.3 mg/dL (8.4-10.2) L 11/03/17 05:50 Total Bilirubin 1.70 mg/dL (0.1-1.2) H 11/03/17 05:50 AST 48 units/L (5-40) H 11/03/17 05:50 ALT 50 units/L (7-56) 11/03/17 05:50 Alkaline Phosphatase 125 units/L (35-129) 11/03/17 05:50 Ammonia 39.0 umol/L (25-60) 11/03/17 05:50 Total Protein 5.2 g/dL (6.3-8.2) L D 11/03/17 05:50 Albumin 3.4 g/dL (3.9-5) L 11/03/17 05:50 Albumin/Globulin Ratio 1.9 % 11/03/17 05:50 Amylase 113 units/L (27-131) 11/01/17 11:51 Lipase 36 units/L (13-60) 11/01/17 11:51
--- NOTE | 2017-11-03 12:53 | Discharge Summary ---
Providers - Providers Date of Admission: 11/01/17 14:53 Date of discharge: 11/04/17 Attending physician: PRINCESS GRIFFIN 11/01/17 Consult to Case Management [CONS] Routine Services Needed at Discharge: Dumpster Operator Notified:: yes 11/01/17 14:26 Consult to Physician [CONS] Urgent Comment: Consulting Provider: JV SMITH Physician Instructions: Reason For Exam: hyperkalemia, end-stage renal disease Primary care physician: DATA ENTRY SPECIALIST Hospitalization Condition: Stable Hospital course: Patient is a 57 yo man with a history of ESRD on hemodialysis, CHF, Anemia and hypertension who pw abd pains and missing hemodialysis. He is from [place] and visiting the [place] area for his mother's but wants to stay in the area ; so Hemodialysis setup is pending. * CT abd/pelvis without contrast IMPRESSION: 1. Findings concerning for hepatic cirrhosis with a moderate to large volume of scattered ascites. Hepatomegaly. 2. Cholelithiasis. Cannot completely exclude acute cholecystitis given the presence of pericholecystic fluid/ascites. 3. Numerous probable simple bilateral renal cysts. A single hyper attenuating lesion in the inferior pole of the left kidney likely represents a proteinaceous or hemorrhagic cyst. 4. Catheter extending from the spinal canal to the peritoneum with disruption of the catheter in the right flank. 5. Bilateral fat containing inguinal hernias. 6. Multi chamber cardiac enlargement and trace pericardial fluid. 7. Noncalcified 3 millimeter right lower lobe pulmonary nodule. Consider further evaluation with chest CT to exclude other nodules. * pCXR IMPRESSION: Left lower lobe atelectasis versus pneumonia. Cardiomegaly. ESRD on hemodialysis: renal is following, HD MWF, Awaiting out pt HD placement Metabolic acidosis due to renal failure: HD as scheduled Right lower lobe pulmonary nodule: No Leukocytosis or fever. 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 Disposition: DC-01 TO HOME OR SELFCARE Time spent for discharge: 35 minutes Core Measure Documentation - Palliative Care Palliative Care/ Comfort Measures: Not Applicable - Core Measures Any of the following diagnoses?: none - VTE Discharge Requirements Deep Vein Thrombosis/Pulmonary Embolism Present on Admission: No Has pt received <5 days of overlap therapy or INR<2.0: No Anticoagulant overlap therapy prescribed at discharge: No Contraindication No Overlap Therapy order at DC: Not Indicated Exam - Physical Exam Narrative exam: GEN: WDWN, NAD, Awake, Alert, Orientated x 3 HEENT: NCAT, EOMI, PERRL, OP Clear NECK: supple, no adenopathy, no thyromegaly, no JVD CVS/HEART: RRR, normal S1S2, pulses present bilaterally CHEST/LUNGS: Symmetrical chest expansion, good air entry bilaterally GI/Abdomen: mildly distended but soft and nontender, good bowel sounds, no guarding or rebound /Bladder: no suprapubic tenderness, no CVA or paraspinal tenderness EXT/Skin: no c/c/e, no obvious rash MSK: FROM x 4 Neuro: CN 2-12 grossly intact, no new focal deficits Psych: calm but sad, denies SI, HI - Constitutional Vitals: Temp Pulse Resp BP Pulse Ox 98.0 F 81 18 129/86 97 11/03/17 05:29 11/03/17 05:29 11/03/17 05:29 11/03/17 05:29 11/03/17 05:29 Plan Activity: other (no strenous activities) Diet: renal Additional Instructions: Make an appointment with Dr. Bustamante regarding Liver disease. Make an appointment with Dr. Cool regarding Lung nodule. You will need repeat CT scan of abd/pelvis and CT chest with Dr. Nathan. Your Hemodialysis has been set up for [facility] on MWF at 11 am Follow up with: PRIYA BROWN MD [Primary Care Provider] - 3-5 Days JUDITH MORENO MD [Staff Physician] - 7 Days SARAH COOL MD [Staff Physician] - 7 Days ANDREW BUSTAMANTE MD [Staff Physician] - 14 Days Prescriptions: Calcium Acetate [Phoslo] 1,334 mg PO TID #90 capsule Carvedilol [Coreg] 6.25 mg PO BID #60 tablet hydrALAZINE [Apresoline TAB] 50 mg PO BID #60 tablet Levothyroxine [Synthroid] 112 mcg PO DAILY@0600 #30 tablet oxyCODONE /ACETAMINOPHEN [Percocet 5/325 mg] 1 tab PO Q6H PRN #8 tablet PRN Reason: Pain , Severe (7-10)
[2017-11-03 16:30] LABS: Total Cells Counted 100
[2017-11-03 16:31] LABS: Basophils % (Manual) 0 % (0.0-1.8)
[2017-11-03 16:32] LABS: Acanthocytes Few; Anisocytosis 1+; Ovalocytes Few; Platelet Estimate Consistent w Auto
--- NOTE | 2017-11-03 20:15 | Progress Note ---
Assessment and Plan - Patient Problems (1) ESRD (end stage renal disease) Current Visit: Yes Status: Acute Plan to address problem: Hemodialysis has been arranged to be done on a Thursday, and Thursday schedule as an outpatient at [facility] dialysis.. (2) Metabolic acidosis Current Visit: Yes Status: Acute Plan to address problem: Hemodialysis for solute clearance and then reevaluate (3) Right lower lobe pulmonary nodule Current Visit: Yes Status: Acute Plan to address problem: Will need CT scan of the chest to evaluate right pulmonary nodules. Defer to primary attending if to be done in the hospital or as an outpatient (4) Cirrhosis of liver with ascites Current Visit: Yes Status: Acute Plan to address problem: Needs follow-up with consumer relations specialist. This can be done as an outpatient but with the abdominal pain may need to consult GI and consider paracentesis if fluid enough to be tapped (5) Abdominal pain Current Visit: Yes Status: Acute Plan to address problem: CT scan nondiagnostic. Further management per primary attending. (6) Hyperkalemia Current Visit: Yes Status: Acute Plan to address problem: Resolved. Subjective Date of service: 11/03/17 Principal diagnosis: right lober pneumonia, liver Cirrhosisd, metabolic acidosis Interval history: Patient seen lying in bed earlier. He had no complaints. Feels better. Has questions about the outpatient dialysis arrangements. Objective - Exam Narrative Exam: Middle-age -Turkish male lying in bed in no acute distress HEENT: NCAT, pink oral mucous membrane Neck: Supple, no venous distention CVS: S1S2 RRR with no murmur, rub or gallop Chest: Clear to auscultation Abdomen: Protuberant, soft, nontender, no organomegaly, bowel sounds are present Extremities: No edema, no clubbing, right upper extremity Av graft with good thrill and bruit Skin warm and dry, hyperpigmented patches and plaques in right groin and lower extremities Genoto-urinary deferred Neuro: Awake, alert no focal deficits - Vital Signs Vital signs: Vital Signs - 12hr 11/03/17 12:32 Temperature 97.8 F Pulse Rate 72 Respiratory 22 Rate Blood Pressure 112/76 O2 Sat by Pulse 97 Oximetry - Lab 11/03/17 05:50 11/03/17 05:50 Most recent lab results Calcium 8.3 mg/dL (8.4-10.2) L 11/03/17 05:50
[2017-11-04] MEDS: SYNTHROID PO SCH (05:20)
[2017-11-04] MEDS: PHOSLO PO SCH ×2 (09:29→12:16)
[2017-11-04] MEDS ORDERED: NACL 0.9% 100 ML IV PRN (10:50)
[2017-11-04] MEDS: APRESOLINE PO SCH (12:12)
[2017-11-04] MEDS: PEPCID PO SCH (12:16)
[2017-11-04] MEDS: COREG PO SCH (12:16)
[2017-11-04] MEDS: SODIUM CHLORIDE FLUSH SYRINGE 10 ML IV SCH (12:17)
--- NOTE | 2017-11-04 13:32 | Query- General ---
Iván Chacon____Wise Date:___11/04/17 Filling And Stapling Machine Operator/ORTEGA:___tracee Phone#:__[phone] Exercise your independent professional judgment when responding to this query. Questions asked do not imply a particular answer is desired or expected. We greatly appreciate your clarification on this issue. Clinical Documentation States: Patient is a 57 yo man with a history of ESRD on hemodialysis, CHF, Anemia and hypertension who pw abd pains and missing hemodialysis. 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 Taken from progress note on 11/02/17. Clinical Findings Show (include reference to source document): CXR IMPRESSION: Patchy left lobe opacities seen. Left lower lobe atelectasis versus pneumonia. pt on Azithromycin Given the above clinical scenario can you please provide an appropriate diagnosis based on your knowledge of the patient: PHYSICIAN RESPONSE: [ ] Pneumonia Ruled In [x ] Pneumonia Ruled Out [ ] Other (Please specify) Present on Admission: [ ] Yes (Y) [ ] Clinically undeterminable (W) [x ]No(N) Please also document response in your Progress Notes and/or Discharge Summary and indicate if the condition was present on admission. MTDD
--- NOTE | 2017-11-04 13:37 | Progress Note ---
Assessment and Plan - Patient Problems (1) ESRD (end stage renal disease) Current Visit: Yes Status: Acute Plan to address problem: Hemodialysis has been arranged to be done on a Thursday, Thursday and Thursday at 11: 30 AM schedule as an outpatient at [facility] dialysis.. (2) Metabolic acidosis Current Visit: Yes Status: Acute Plan to address problem: Hemodialysis for solute clearance and then reevaluate (3) Right lower lobe pulmonary nodule Current Visit: Yes Status: Acute Plan to address problem: Will need CT scan of the chest to evaluate right pulmonary nodules. Defer to primary attending if to be done in the hospital or as an outpatient (4) Cirrhosis of liver with ascites Current Visit: Yes Status: Acute Plan to address problem: Needs follow-up with clinical microbiologist. This can be done as an outpatient but with the abdominal pain may need to consult GI and consider paracentesis if fluid enough to be tapped (5) Abdominal pain Current Visit: Yes Status: Acute Plan to address problem: CT scan nondiagnostic. Further management per primary attending. (6) Hyperkalemia Current Visit: Yes Status: Acute Plan to address problem: Resolved. Subjective Date of service: 11/04/17 Principal diagnosis: right lober pneumonia, liver Cirrhosisd, metabolic acidosis Interval history: Patient seen lying in bed earlier. He had no complaints. Feels better. Objective - Exam Narrative Exam: Middle-age -Turkmen male lying in bed in no acute distress HEENT: NCAT, pink oral mucous membrane Neck: Supple, no venous distention CVS: S1S2 RRR with no murmur, rub or gallop Chest: Clear to auscultation Abdomen: Protuberant, soft, nontender, no organomegaly, bowel sounds are present Extremities: No edema, no clubbing, right upper extremity Av graft with good thrill and bruit Skin warm and dry, hyperpigmented patches and plaques in right groin and lower extremities Genoto-urinary deferred Neuro: Awake, alert no focal deficits - Vital Signs Vital signs: Vital Signs - 12hr 11/04/17 11/04/17 11/04/17 06:06 11:36 12:12 Temperature 97.7 F 97.4 F L Pulse Rate 77 76 76 Respiratory 18 20 Rate Blood Pressure 129/90 122/92 122/92 O2 Sat by Pulse 91 98 Oximetry - Lab 11/03/17 05:50 11/03/17 05:50 Most recent lab results Calcium 8.3 mg/dL (8.4-10.2) L 11/03/17 05:50
[2017-11-04] MEDS: HEPARIN 10,000 UNITS/10 ML IV PRN (17:52)
[2017-11-04] MEDS ORDERED: NACL 0.9 (PRIMING MACHINE ONLY DIALYSIS) MC ONE ×2 (17:53→19:28)
[2017-11-04 19:06] VITALS: BP 127/81
== END 2017-11-04 20:05 | disposition home or self-care (01) | DRG 640 ==
LOC: ED 08:46 → 3A 14:53
PROVIDERS: ADMIT Internal Medicine; ATTEND Internal Medicine
PROC: 5A1D70Z Performance of Urinary Filtration, Intermittent, Less than 6 Hours Per Day (ICD-10-PCS; principal; 2017-11-02)
PROC: 5A1D70Z Performance of Urinary Filtration, Intermittent, Less than 6 Hours Per Day (ICD-10-PCS; 2017-11-02)
DX: E87.5 Hyperkalemia (principal); N18.6 End stage renal disease; R18.8 Other ascites; I13.2 Hypertensive heart and chronic kidney disease with heart failure and with stage 5 chronic kidney disease, or end stage renal disease; E87.2 Acidosis; E16.2 Hypoglycemia, unspecified; I50.9 Heart failure, unspecified; R91.1 Solitary pulmonary nodule; D63.1 Anemia in chronic kidney disease; S30.823A Blister (nonthermal) of scrotum and testes, initial encounter; X58.XXXA Exposure to other specified factors, initial encounter; K80.20 Calculus of gallbladder without cholecystitis without obstruction; R16.0 Hepatomegaly, not elsewhere classified; K74.60 Unspecified cirrhosis of liver; Z99.2 Dependence on renal dialysis; Z82.49 Family history of ischemic heart disease and other diseases of the circulatory system; Z84.1 Family history of disorders of kidney and ureter; Y93.89 Activity, other specified; Y92.89 Other specified places as the place of occurrence of the external cause; Y99.8 Other external cause status; Z91.15 Patient's noncompliance with renal dialysis; Z95.828 Presence of other vascular implants and grafts
CPT/HCPCS: 36415; 71045; 74176; 80053; 82140; 82150; 82962; 83036; 83690; 85007; 85025; 93005; 93010; 94644; 96374; 96375; A9270-GY; J1644; J7030

== ENCOUNTER 2017-11-06 07:11 | Emergency (ER) | payer MEDICARE ==
[2017-11-06 07:31] VITALS: BP 139/104
[2017-11-06] MEDS ORDERED: NACL 0.9% 1000 ML 1,000 ML IV ONE (07:31)
[2017-11-06 08:23] LABS: Hematocrit 36.3 % (35.5-45.6); Hemoglobin 11.4 gm/dl (11.8-15.2); Mean Corpuscular HGB Conc 31 % (32-34); Mean Corpuscular Hemoglobin 26 pg (28-32); Mean Corpuscular Volume 84 fl (84-94); Platelet Count 150 K/mm3 (140-440); Red Blood Count 4.33 M/mm3 (3.65-5.03)
[2017-11-06 08:31] LABS: Albumin 4.4 g/dL (3.9-5); Calcium 8.6 mg/dL (8.4-10.2)
[2017-11-06 08:32] LABS: Red Cell Distribution Width 28.9 % (13.2-15.2)
[2017-11-06 11:43] LABS: Anisocytosis 3+; Eosinophils % (Manual) 0 % (0.0-4.3); Total Cells Counted 100
[2017-11-06 11:44] LABS: Ovalocytes 1+; Platelet Estimate Cons; Poikilocytosis 2+; Tear Drop Cells Few
== END 2017-11-06 10:50 | disposition left against medical advice (07) ==
LOC: ED 07:11
DX: R10.9 Unspecified abdominal pain (principal); R19.7 Diarrhea, unspecified; I50.9 Heart failure, unspecified; I10 Essential (primary) hypertension; Z88.2 Allergy status to sulfonamides; Z53.21 Procedure and treatment not carried out due to patient leaving prior to being seen by health care provider
CPT/HCPCS: 36415; 80053; 85007; 85025; 93005; 93010

== ENCOUNTER 2021-04-22 13:50 | Emergency (ER) | payer MEDICARE ==
[2021-04-22 14:47] VITALS: BP 92/56
[2021-04-22 15:52] LABS: Calcium 9.1 mg/dL (8.4-10.2)
--- NOTE | 2021-04-22 16:13 | Emergency Department Report ---
ED General Adult HPI - General Chief complaint: Weakness Stated complaint: DIALYSIS/RT FOOT PAIN Time Seen by Provider: 04/22/21 15:22 Source: patient Mode of arrival: Wheelchair Limitations: Physical Limitation - History of Present Illness Initial comments: Patient presents requesting dialysis. He was last dialyzed on Thursday. This was in [place]. He states that he is moving to [place]. He does not have any dialysis set up. Patient states that his special needs nanny was "too busy doing other things". He tried to call the hotline today for dialysis and was told to come to the hospital. He has no chest pain or shortness of breath. He has no back p ain. Has no vomiting. He states that his right foot is sore but it has been sore for weeks. He states that he had broken his foot before. Patient states that he was told to come here for dialysis and that we would do dialysis. Severity scale (0 -10): 8 - Related Data Home Medications Medication Instructions Recorded Confirmed Last Taken diphenhydrAMINE [Benadryl CAP] 50 mg PO Q8H PRN 02/24/18 02/24/18 02/23/18 Previous Rx's Medication Instructions Recorded Last Taken Type Ondansetron [Zofran ODT TAB] 4 mg PO Q8HR PRN #10 tab.rapdis 11/03/17 Unknown Rx AtorvaSTATin 10 mg PO QHS tablet 01/16/18 02/22/18 Rx Calcium Acetate [Phoslo] 1,334 mg PO TID #90 capsule 01/16/18 02/23/18 Rx Levothyroxine [Synthroid] 112 mcg PO DAILY@0600 #30 tablet 01/16/18 02/23/18 Rx Pantoprazole [Protonix TAB] 40 mg PO DAILY #30 tablet 01/16/18 02/22/18 Rx hydrALAZINE [Apresoline TAB] 50 mg PO BID #60 tablet 01/16/18 02/23/18 Rx ALBUTEROL Inhaler(NF) [VENTOLIN 1 puff IH Q4H PRN 1 Days #1 inha 01/19/18 Unknown Rx Inhaler(NF)] Benzonatate [Tessalon Perles] 100 mg PO Q8HR PRN #30 capsule 01/19/18 Unknown Rx Ibuprofen [Ibuprofen 800] 800 mg PO TID PRN #30 tablet 01/19/18 Unknown Rx Triamcinolone Aceton 0.1% (Nf) 1 applic TP BID #1 tube 01/19/18 Unknown Rx [Kenalog (NF)] dexAMETHasone [Decadron] 4 mg PO Q12H 2 Days #4 tablet 01/19/18 Unknown Rx Permethrin 5% [Acticin 5% CREAM] 1 applicatio TP ONCE 14 Days #1 01/27/18 02/10/18 08:00 Rx tube carvediloL [Coreg] 6.25 mg PO BID #60 tablet 02/12/18 02/23/18 Rx hydrALAZINE [Apresoline TAB] 50 mg PO BID #60 tablet 02/12/18 02/23/18 Rx oxyCODONE /ACETAMINOPHEN [Percocet 1 tab PO Q6H PRN #8 tablet 02/12/18 Unknown Rx 5/325 mg] Aspirin EC [Halfprin EC] 81 mg PO QDAY #30 tablet. 02/21/18 02/22/18 Rx Allergies Allergy/AdvReac Type Severity Reaction Status Date / Time Iodinated Contrast Media Allergy Unknown Hives Verified 01/21/18 11:36 Sulfa (Sulfonamide AdvReac Shortness Verified 01/21/18 11:36 Antibiotics) of Breath ED Review of Systems ROS: Stated complaint: DIALYSIS/RT FOOT PAIN Other details as noted in HPI Comment: All other systems reviewed and negative Constitutional: denies: fever Eyes: denies: eye pain ENT: denies: throat pain Respiratory: denies: cough Cardiovascular: denies: chest pain Endocrine: denies: unexplained weight loss Gastrointestinal: denies: abdominal pain Musculoskeletal: denies: back pain Skin: denies: rash Neurological: denies: headache Hematological/Lymphatic: denies: easy bruising ED Past Medical Hx - Past Medical History Previous Medical History?: Yes Hx Hypertension: Yes Hx Congestive Heart Failure: Yes Hx Diabetes: No Hx Renal Disease: Yes (MWF) Hx Asthma: No Hx COPD: No Hx HIV: No - Surgical History Past Surgical History?: Yes Hx Pacemaker: Yes Additional Surgical History: AV fistula - Family History Family history: hypertension - Social History Smoking Status: Never Smoker - Medications Home Medications: Home Medications Medication Instructions Recorded Confirmed Last Taken Type Ondansetron [Zofran ODT TAB] 4 mg PO Q8HR PRN #10 tab.rapdis 11/03/17 02/24/18 Unknown Rx AtorvaSTATin 10 mg PO QHS tablet 01/16/18 02/24/18 02/22/18 Rx Calcium Acetate [Phoslo] 1,334 mg PO TID #90 capsule 01/16/18 02/24/18 02/23/18 Rx Levothyroxine [Synthroid] 112 mcg PO DAILY@0600 #30 tablet 01/16/18 02/24/18 02/23/18 Rx Pantoprazole [Protonix TAB] 40 mg PO DAILY #30 tablet 01/16/18 02/24/18 02/22/18 Rx hydrALAZINE [Apresoline TAB] 50 mg PO BID #60 tablet 01/16/18 02/24/18 02/23/18 Rx ALBUTEROL Inhaler(NF) [VENTOLIN 1 puff IH Q4H PRN 1 Days #1 inha 01/19/18 02/24/18 Unknown Rx Inhaler(NF)] Benzonatate [Tessalon Perles] 100 mg PO Q8HR PRN #30 capsule 01/19/18 02/24/18 Unknown Rx Ibuprofen [Ibuprofen 800] 800 mg PO TID PRN #30 tablet 01/19/18 02/24/18 Unknown Rx Triamcinolone Aceton 0.1% (Nf) 1 applic TP BID #1 tube 01/19/18 02/24/18 Unknown Rx [Kenalog (NF)] dexAMETHasone [Decadron] 4 mg PO Q12H 2 Days #4 tablet 01/19/18 02/24/18 Unknown Rx Permethrin 5% [Acticin 5% CREAM] 1 applicatio TP ONCE 14 Days #1 01/27/18 02/24/18 02/10/18 08:00 Rx tube carvediloL [Coreg] 6.25 mg PO BID #60 tablet 02/12/18 02/24/18 02/23/18 Rx hydrALAZINE [Apresoline TAB] 50 mg PO BID #60 tablet 02/12/18 02/24/18 02/23/18 Rx oxyCODONE /ACETAMINOPHEN [Percocet 1 tab PO Q6H PRN #8 tablet 02/12/18 02/24/18 Unknown Rx 5/325 mg] Aspirin EC [Halfprin EC] 81 mg PO QDAY #30 tablet. 02/21/18 02/24/18 02/22/18 Rx diphenhydrAMINE [Benadryl CAP] 50 mg PO Q8H PRN 02/24/18 02/24/18 02/23/18 History ED Physical Exam - General Limitations: Physical Limitation, Other (Pulse ox noted and normal) General appearance: alert, in no apparent distress - Head Head exam: Present: atraumatic, normocephalic - Eye Eye exam: Present: normal appearance, EOMI. Absent: scleral icterus - ENT ENT exam: Present: normal orophraynx, normal external ear exam - Neck Neck exam: Present: normal inspection. Absent: meningismus - Respiratory Respiratory exam: Present: normal lung sounds bilaterally. Absent: respiratory distress - Cardiovascular Cardiovascular Exam: Present: regular rate, normal rhythm - GI/Abdominal GI/Abdominal exam: Present: soft. Absent: distended, tenderness - Extremities Exam Extremities exam: Present: normal capillary refill, other (AV fistula in right upper extremity) - Back Exam Back exam: Absent: CVA tenderness (R), CVA tenderness (L) - Neurological Exam Neurological exam: Present: alert, oriented X3, CN II-XII intact, abnormal gait (Antalgic). Absent: motor sensory deficit - Psychiatric Psychiatric exam: Present: normal affect, normal mood - Skin Skin exam: Present: warm, dry ED Course Vital Signs 04/22/21 14:46 Temperature 98.0 F Pulse Rate 96 H Respiratory 18 Rate Blood Pressure 92/56 [Left] O2 Sat by Pulse 95 Oximetry - Reevaluation(s) Reevaluation #1: 04/22/21 16:38 Labs were noted. There is no indication for emergent dialysis. Patient was referred to renal as well as primary care physicians for follow-up. ED Medical Decision Making - Lab Data Result diagrams: 04/22/21 15:16 04/22/21 15:16 - Medical Decision Making Patient presents for possible dialysis. There is no medical indication for emergent dialysis. He is not hyperkalemic. Patient has no evidence of volume overload. There is no pulmonary edema. There is no indication to admit him for dialysis. Patient was referred to dialysis follow-up. I did attempt to call his sister with the number given although her voicemail was full. Critical Care Time: No Critical care attestation.: If time is entered above; I have spent that time in minutes in the direct care of this critically ill patient, excluding procedure time. ED Disposition Clinical Impression: ESRD on dialysis Disposition: HOME / SELF CARE / HOMELESS Is pt being admited?: No Condition: Stable Instructions: Dialysis Additional Instructions: Follow-up with the primary care physician and special needs nanny as referred. Follow-up with case management. Return for problems. Return in 24 to 40 hours for laboratory evaluation if you are having problems or need to have your potassium rechecked. Referrals: PRIMARY MD STEPHANIE [Referring] - 3-5 Days ODALIS BAKER MD [Staff Physician] - 3-5 Days JOHN PAUL EID MD [Staff Physician] - 3-5 Days
[2021-04-22 16:29] LABS: Hematocrit 33.7 % (35.5-45.6); Hemoglobin 10.7 gm/dl (11.8-15.2); Mean Corpuscular HGB Conc 32 % (32-34); Mean Corpuscular Volume 89 fl (84-94); Platelet Count 132 K/mm3 (140-440); Red Blood Count 3.78 M/mm3 (3.65-5.03); Red Cell Distribution Width 19.6 % (13.2-15.2)
== END 2021-04-23 06:09 | disposition home or self-care (01) ==
LOC: ED 13:50
DX: I13.2 Hypertensive heart and chronic kidney disease with heart failure and with stage 5 chronic kidney disease, or end stage renal disease (principal); N18.6 End stage renal disease; I50.9 Heart failure, unspecified; Z99.2 Dependence on renal dialysis; Z98.890 Other specified postprocedural states; Z79.899 Other long term (current) drug therapy; Z88.2 Allergy status to sulfonamides; Z88.8 Allergy status to other drugs, medicaments and biological substances
CPT/HCPCS: 36415; 80048; 85025; 99283

== ENCOUNTER 2021-04-24 16:28 | Inpatient (IN) | payer MEDICARE ==
[2021-04-24 18:50] LABS: Basophils # (Auto) 0.1 K/mm3 (0.0-0.1); Basophils % (Auto) 2.5 % (0.0-1.8); Eosinophils % (Auto) 0.1 % (0.0-4.3); Hematocrit 31.1 % (35.5-45.6); Lymphocytes # (Auto) 0.5 K/mm3 (1.2-5.4); Lymphocytes % (Auto) 9.7 % (13.4-35.0); Mean Corpuscular HGB Conc 32 % (32-34); Mean Corpuscular Volume 90 fl (84-94); Monocytes # (Auto) 0.4 K/mm3 (0.0-0.8); Monocytes % (Auto) 7.8 % (0.0-7.3); Platelet Count 129 K/mm3 (140-440); Red Blood Count 3.44 M/mm3 (3.65-5.03); Red Cell Distribution Width 19.7 % (13.2-15.2)
[2021-04-24 19:15] LABS: Albumin 3.7 g/dL (3.9-5); Calcium 8.7 mg/dL (8.4-10.2)
[2021-04-24] MEDS ORDERED: CALCIUM GLUCONATE 1,000 MG in SODIUM CHLORIDE 0.9% 100 ML IV ONE (20:10)
[2021-04-24] MEDS ORDERED: SODIUM BICARB 8.4% 50 MEQ/50 ML SYRINGE IV ONE (20:10)
[2021-04-24] MEDS ORDERED: ALBUTEROL 2.5 MG/3 ML NEBU IH STA (20:11)
[2021-04-24] MEDS ORDERED: CALC GLUCONATE 1GM/NS 100 ML 1 GM/100 ML BAG IV ONE (21:00)
--- NOTE | 2021-04-24 21:41 | Emergency Department Report ---
ED Shortness of Breath HPI - General Chief Complaint: Medical Clearance Stated Complaint: NEED DIALYSIS Time Seen by Provider: 04/24/21 19:49 Source: patient Mode of arrival: Ambulatory Limitations: No Limitations - History of Present Illness Initial Comments: CC: "I need dialysis." HPI: This is a 60 yo male ESRD on HD, DM, cirrhosis, systolic heart failiure, GI Bleed, HTN who has not had dialysis in one week. Last HD session occurred one week in [place]. He plans to relocate to [place]. He does not have a net technical architect or home dialysis center. He has mild shortness of breath. He denies pain. MD Complaint: shortness of breath -: week(s) (one week) Severity: mild Consistency: constant Improves With: nothing Worsens With: exertion Known History Of: congestive heart failure, other (ESRD) Context: other (ESRD ) - Related Data Home Medications Medication Instructions Recorded Confirmed Last Taken diphenhydrAMINE [Benadryl CAP] 50 mg PO Q8H PRN 02/24/18 02/24/18 02/23/18 Previous Rx's Medication Instructions Recorded Last Taken Type Ondansetron [Zofran ODT TAB] 4 mg PO Q8HR PRN #10 tab.rapdis 11/03/17 Unknown Rx AtorvaSTATin 10 mg PO QHS tablet 01/16/18 02/22/18 Rx Calcium Acetate [Phoslo] 1,334 mg PO TID #90 capsule 01/16/18 02/23/18 Rx Levothyroxine [Synthroid] 112 mcg PO DAILY@0600 #30 tablet 01/16/18 02/23/18 Rx Pantoprazole [Protonix TAB] 40 mg PO DAILY #30 tablet 01/16/18 02/22/18 Rx hydrALAZINE [Apresoline TAB] 50 mg PO BID #60 tablet 01/16/18 02/23/18 Rx ALBUTEROL Inhaler(NF) [VENTOLIN 1 puff IH Q4H PRN 1 Days #1 inha 01/19/18 Unknow n Rx Inhaler(NF)] Benzonatate [Tessalon Perles] 100 mg PO Q8HR PRN #30 capsule 01/19/18 Unknown Rx Ibuprofen [Ibuprofen 800] 800 mg PO TID PRN #30 tablet 01/19/18 Unknown Rx Triamcinolone Aceton 0.1% (Nf) 1 applic TP BID #1 tube 01/19/18 Unknown Rx [Kenalog (NF)] dexAMETHasone [Decadron] 4 mg PO Q12H 2 Days #4 tablet 01/19/18 Unknown Rx Permethrin 5% [Acticin 5% CREAM] 1 applicatio TP ONCE 14 Days #1 01/27/18 02/10/18 08:00 Rx tube carvediloL [Coreg] 6.25 mg PO BID #60 tablet 02/12/18 02/23/18 Rx hydrALAZINE [Apresoline TAB] 50 mg PO BID #60 tablet 02/12/18 02/23/18 Rx oxyCODONE /ACETAMINOPHEN [Percocet 1 tab PO Q6H PRN #8 tablet 02/12/18 Unknown Rx 5/325 mg] Aspirin EC [Halfprin EC] 81 mg PO QDAY #30 tablet. 02/21/18 02/22/18 Rx Allergies Allergy/AdvReac Type Severity Reaction Status Date / Time Iodinated Contrast Media Allergy Unknown Hives Verified 01/21/18 11:36 Sulfa (Sulfonamide AdvReac Shortness Verified 01/21/18 11:36 Antibiotics) of Breath ED Review of Systems ROS: Stated complaint: NEED DIALYSIS Other details as noted in HPI Comment: All other systems reviewed and negative Constitutional: denies: chills, fever, malaise Respiratory: shortness of breath. denies: cough Cardiovascular: denies: chest pain Gastrointestinal: denies: abdominal pain, nausea, vomiting Neurological: denies: headache ED Past Medical Hx - Past Medical History Previous Medical History?: Yes Hx Hypertension: Yes Hx Congestive Heart Failure: Yes Hx Diabetes: No Hx Renal Disease: Yes (MWF) Hx Asthma: No Hx COPD: No Hx HIV: No - Surgical History Past Surgical History?: Yes Hx Pacemaker: Yes Additional Surgical History: AV fistula, port-a-cath - Social History Smoking Status: Never Smoker Substance Use Type: None - Medications Home Medications: Home Medications Medication Instructions Recorded Confirmed Last Taken Type Ondansetron [Zofran ODT TAB] 4 mg PO Q8HR PRN #10 tab.rapdis 11/03/17 02/24/18 Unknown Rx AtorvaSTATin 10 mg PO QHS tablet 01/16/18 02/24/18 02/22/18 Rx Calcium Acetate [Phoslo] 1,334 mg PO TID #90 capsule 01/16/18 02/24/18 02/23/18 Rx Levothyroxine [Synthroid] 112 mcg PO DAILY@0600 #30 tablet 01/16/18 02/24/18 02/23/18 Rx Pantoprazole [Protonix TAB] 40 mg PO DAILY #30 tablet 01/16/18 02/24/18 02/22/18 Rx hydrALAZINE [Apresoline TAB] 50 mg PO BID #60 tablet 01/16/18 02/24/18 02/23/18 Rx ALBUTEROL Inhaler(NF) [VENTOLIN 1 puff IH Q4H PRN 1 Days #1 inha 01/19/18 02/24/18 Unknown Rx Inhaler(NF)] Benzonatate [Tessalon Perles] 100 mg PO Q8HR PRN #30 capsule 01/19/18 02/24/18 Unknown Rx Ibuprofen [Ibuprofen 800] 800 mg PO TID PRN #30 tablet 01/19/18 02/24/18 Unknown Rx Triamcinolone Aceton 0.1% (Nf) 1 applic TP BID #1 tube 01/19/18 02/24/18 Unknown Rx [Kenalog (NF)] dexAMETHasone [Decadron] 4 mg PO Q12H 2 Days #4 tablet 01/19/18 02/24/18 Unknown Rx Permethrin 5% [Acticin 5% CREAM] 1 applicatio TP ONCE 14 Days #1 01/27/18 02/24/18 02/10/18 08:00 Rx tube carvediloL [Coreg] 6.25 mg PO BID #60 tablet 02/12/18 02/24/18 02/23/18 Rx hydrALAZINE [Apresoline TAB] 50 mg PO BID #60 tablet 02/12/18 02/24/18 02/23/18 Rx oxyCODONE /ACETAMINOPHEN [Percocet 1 tab PO Q6H PRN #8 tablet 02/12/18 02/24/18 Unknown Rx 5/325 mg] Aspirin EC [Halfprin EC] 81 mg PO QDAY #30 tablet. 02/21/18 02/24/18 02/22/18 Rx diphenhydrAMINE [Benadryl CAP] 50 mg PO Q8H PRN 02/24/18 02/24/18 02/23/18 History ED Physical Exam - General Limitations: No Limitations General appearance: alert, in no apparent distress, other (mild work of breathing) - Head Head exam: Present: atraumatic, normocephalic - Eye Eye exam: Present: normal appearance, periorbital swelling - ENT ENT exam: Present: mucous membranes moist - Neck Neck exam: Present: normal inspection, full ROM - Respiratory Respiratory exam: Present: normal lung sounds bilaterally. Absent: respiratory distress, wheezes, rales, rhonchi - Cardiovascular Cardiovascular Exam: Present: regular rate, normal rhythm, normal heart sounds, other (right port-a-cath). Absent: systolic murmur, diastolic murmur, rubs, gallop - GI/Abdominal GI/Abdominal exam: Present: soft, normal bowel sounds. Absent: distended, tenderness, guarding, rebound - Rectal Rectal exam: Present: deferred - Extremities Exam Extremities exam: Present: normal inspection - Back Exam Back exam: Present: normal inspection - Neurological Exam Neurological exam: Present: alert, oriented X3 - Psychiatric Psychiatric exam: Present: normal affect, normal mood - Skin Skin exam: Present: warm, dry, intact, normal color. Absent: rash ED Course Vital Signs 04/24/21 04/24/21 04/24/21 16:50 21:15 22:09 Temperature 98.7 F Pulse Rate 87 Pulse Rate [ 92 H Bilateral Throughout] Respiratory 18 Rate Respiratory 22 Rate [Bilateral Throughout] Blood Pressure 113/75 [Left] O2 Sat by Pulse 97 94 Oximetry ED Medical Decision Making - Lab Data Result diagrams: 04/24/21 18:23 04/24/21 18:23 - Medical Decision Making Mr. Min presents with uremic complications due to noncompliance with hemodia lysis. He has anemia noted with facial edema mild shortness of breath. He has elevated BUN and hyperkalemia. Treatment emergency department included albuterol calcium gluconate sodium bicarbonate. Dr. Beach net technical architect consulted. She will provide hemodialysis orders for the morning. Admitted to the hospital service. Critical care attestation.: If time is entered above; I have spent that time in minutes in the direct care of this critically ill patient, excluding procedure time. ED Disposition Clinical Impression: ESRD needing dialysis, Fluid overload, Hyperkalemia Disposition: ADMITTED INPATIENT Is pt being admited?: Yes Does the pt Need Aspirin: No Condition: Stable Referrals: ADRIANA TOURE MD [Primary Care Provider] - 3-5 Days
[2021-04-24] MEDS ORDERED: MORPHINE 2 MG/1 ML INJ IV PRN (23:03)
[2021-04-24] MEDS ORDERED: MAGNESIUM HYDROXIDE (MOM) ORAL LIQD UDC PO PRN (23:03)
[2021-04-24] MEDS ORDERED: ONDANSETRON 4 MG/2 ML INJ IV PRN (23:03)
[2021-04-24] MEDS ORDERED: DEXTROSE 50% IN WATER (25GM) 50 ML SYRINGE IV PRN (23:03)
[2021-04-24] MEDS ORDERED: ACETAMINOPHEN 325 MG TAB PO PRN (23:03)
[2021-04-24] MEDS ORDERED: MORPHINE 4 MG/1 ML INJ IV PRN (23:03)
[2021-04-24] MEDS ORDERED: DEXTROSE 10% *Hypoglycemia IV PRN (23:13)
--- NOTE | 2021-04-24 23:14 | History and Physical Report ---
History of Present Illness Date of examination: 04/24/21 Date of admission: 04/24/2021 Chief complaint: ESRD needing Dialysis History of present illness: 1-year-old -[place] male with known history of end-stage renal disease on dialysis, diabetes mellitus, heart failure, GI bleed, hypertension presents to the emergency room today requesting for dialysis. Patient has not had dialysis in about a week. He also does not have a watershed manager that he follows up with. He has had some mild shortness of breath but denies any chest pain. He denies any nausea vomiting and no abdominal pain. Work-up in the emergency room today, significant findings were that of potassium of 5.7. Patient has had insulin and glucose, sodium bicarbonate and calcium gluconate fo r the elevated potassium. Ream Cutter Dr. Beach has been consulted by the ER physician for possible dialysis. Past History Past Medical History: diabetes, dialysis, ESRD, GERD, heart failure, hypertension, hypothyroidism, other (H/O GI bleed) Past Surgical History: Other (AV fistula, port-a-cath,Pacemaker placement) Social history: no significant social history Family history: no significant family history Medications and Allergies Allergies Allergy/AdvReac Type Severity Reaction Status Date / Time Iodinated Contrast Media Allergy Unknown Hives Verified 01/21/18 11:36 Sulfa (Sulfonamide AdvReac Shortness Verified 01/21/18 11:36 Antibiotics) of Breath Home Medications Medication Instructions Recorded Confirmed Last Taken Type Ondansetron [Zofran ODT TAB] 4 mg PO Q8HR PRN #10 tab.rapdis 11/03/17 02/24/18 Unknown Rx AtorvaSTATin 10 mg PO QHS tablet 01/16/18 02/24/18 02/22/18 Rx Calcium Acetate [Phoslo] 1,334 mg PO TID #90 capsule 01/16/18 02/24/18 02/23/18 Rx Levothyroxine [Synthroid] 112 mcg PO DAILY@0600 #30 tablet 01/16/18 02/24/18 02/23/18 Rx Pantoprazole [Protonix TAB] 40 mg PO DAILY #30 tablet 01/16/18 02/24/18 02/22/18 Rx hydrALAZINE [Apresoline TAB] 50 mg PO BID #60 tablet 01/16/18 02/24/18 02/23/18 Rx ALBUTEROL Inhaler(NF) [VENTOLIN 1 puff IH Q4H PRN 1 Days #1 inha 01/19/18 02/24/18 Unknown Rx Inhaler(NF)] Benzonatate [Tessalon Perles] 100 mg PO Q8HR PRN #30 capsule 01/19/18 02/24/18 Unknown Rx Ibuprofen [Ibuprofen 800] 800 mg PO TID PRN #30 tablet 01/19/18 02/24/18 Unknown Rx Triamcinolone Aceton 0.1% (Nf) 1 applic TP BID #1 tube 01/19/18 02/24/18 Unknown Rx [Kenalog (NF)] dexAMETHasone [Decadron] 4 mg PO Q12H 2 Days #4 tablet 01/19/18 02/24/18 Unknown Rx Permethrin 5% [Acticin 5% CREAM] 1 applicatio TP ONCE 14 Days #1 01/27/18 02/24/18 02/10/18 08:00 Rx tube carvediloL [Coreg] 6.25 mg PO BID #60 tablet 02/12/18 02/24/18 02/23/18 Rx hydrALAZINE [Apresoline TAB] 50 mg PO BID #60 tablet 02/12/18 02/24/18 02/23/18 Rx oxyCODONE /ACETAMINOPHEN [Percocet 1 tab PO Q6H PRN #8 tablet 02/12/18 02/24/18 Unknown Rx 5/325 mg] Aspirin EC [Halfprin EC] 81 mg PO QDAY #30 tablet. 02/21/18 02/24/18 02/22/18 Rx diphenhydrAMINE [Benadryl CAP] 50 mg PO Q8H PRN 02/24/18 02/24/18 02/23/18 History Review of Systems Constitutional: no fever, no chills Ears, nose, mouth and throat: no nasal congestion, no sore throat Cardiovascular: no chest pain, no palpitations Respiratory: no cough, no shortness of breath Gastrointestinal: no nausea, no vomiting, no diarrhea Genitourinary Male: no dysuria, no hematuria, no flank pain Musculoskeletal: no neck pain, no low back pain Integumentary: no rash, no pruritis Neurological: no headaches, no confusion Psychiatric: no anxiety, no depression Endocrine: no polyphagia, no polydipsia, no polyuria, no nocturia Exam - Constitutional Vitals: Temp Pulse Resp BP Pulse Ox 98.7 F 93 H 22 123/66 91 04/24/21 16:50 04/24/21 22:30 04/24/21 22:30 04/24/21 22:30 04/24/21 22:30 General appearance: Present: no acute distress, well-nourished, other (Facial puffiness) - EENT Eyes: Present: PERRL, EOM intact. Absent: scleral icterus ENT: hearing intact, clear oral mucosa, dentition normal - Neck Neck: Present: supple, normal ROM - Respiratory Respiratory effort: normal Respiratory: bilateral: CTA - Cardiovascular Rhythm: other (Port on right anterior chest wall) Heart Sounds: Present: S1 & S2. Absent: gallop, systolic murmur, diastolic murmur, rub, click - Extremities Extremities: no ischemia, pulses intact, pulses symmetrical, No edema, normal temperature, normal color, Full ROM, abnormal (A-V fistula right upper arm) Peripheral Pulses: within normal limits - Abdominal General gastrointestinal: Present: soft, non-tender, non-distended, normal bowel sounds. Absent: mass - Integumentary Integumentary: Present: clear, warm, dry, normal turgor. Absent: rash - Musculoskeletal Musculoskeletal: strength equal bilaterally - Psychiatric Psychiatric: appropriate mood/affect, intact judgment & insight, memory intact, cooperative - Neurologic Neurologic: CNII-XII intact, no focal deficits, moves all extremities Results - Labs CBC & Chem 7: 04/24/21 18:23 04/24/21 18:23 Labs: Abnormal lab results 04/24/21 04/24/21 Range/Units 18:23 18:23 RBC 3.44 L (3.65-5.03) M/mm3 Hgb 10.0 L (11.8-15.2) gm/dl Hct 31.1 L (35.5-45.6) % RDW 19.7 H (13.2-15.2) % Plt Count 129 L (140-440) K/mm3 Lymph % (Auto) 9.7 L (13.4-35.0) % [place] % (Auto) 7.8 H (0.0-7.3) % Baso % (Auto) 2.5 H (0.0-1.8) % Lymph # (Auto) 0.5 L (1.2-5.4) K/mm3 Seg Neutrophils % 79.9 H (40.0-70.0) % Potassium 5.7 H (3.6-5.0) mmol/L BUN 86 H (9-20) mg/dL Creatinine 13.9 H (0.8-1.3) mg/dL Alkaline Phosphatase 145 H (35-129) units/L Albumin 3.7 L (3.9-5) g/dL Assessment and Plan - Patient Problems (1) ESRD needing dialysis Current Visit: Yes Status: Acute Plan to address problem: Consult placed to nephrology for possible dialysis. Dr. Beach has been consulted. (2) Hyperkalemia Current Visit: Yes Status: Acute Plan to address problem: Patient has had insulin and glucose, sodium bicarbonate and calcium gluconate for the elevated potassium. We will monitor potassium levels. (3) HTN (hypertension) Current Visit: No Status: Chronic Qualifiers: Hypertension type: essential hypertension Plan to address problem: We will resume routine home medications and monitor vital signs closely. (4) DVT prophylaxis Current Visit: No Status: Acute Plan to address problem: Patient placed on subcutaneous heparin. (5) Full code status Current Visit: Yes Status: Acute Plan to address problem: Patient is a full code.
[2021-04-25 06:06] LABS: Basophils # (Auto) 0.1 K/mm3 (0.0-0.1); Eosinophils % (Auto) 0.1 % (0.0-4.3); Monocytes # (Auto) 0.3 K/mm3 (0.0-0.8); Monocytes % (Auto) 7.4 % (0.0-7.3)
[2021-04-25 06:27] LABS: Calcium 8.2 mg/dL (8.4-10.2)
[2021-04-25 06:34] LABS: Basophils % (Auto) 0.1 % (0.0-1.8); Hematocrit 28.6 % (35.5-45.6); Hemoglobin 9.1 gm/dl (11.8-15.2); Lymphocytes # (Auto) 0.4 K/mm3 (1.2-5.4); Lymphocytes % (Auto) 8.7 % (13.4-35.0); Mean Corpuscular HGB Conc 32 % (32-34); Mean Corpuscular Volume 89 fl (84-94); Platelet Count 120 K/mm3 (140-440); Red Blood Count 3.22 M/mm3 (3.65-5.03)
[2021-04-25 06:37] LABS: Red Cell Distribution Width 20.1 % (13.2-15.2)
[2021-04-25] MEDS: INSULIN LISPRO 100 UNIT/ML SUB-Q SCH ×3 (08:33→18:02)
--- NOTE | 2021-04-25 09:37 | Consultation ---
History of Present Illness - Reason for Consult Consult date: 04/25/21 end stage renal disease Requesting physician: SILVANA LANDRUM - History of Present Illness HPI: This is a 60 yo male ESRD on HD, DM, cirrhosis, systolic heart failiure, GI Bleed, HTN who has not had dialysis in one week. Last HD session occurred one week in [place]. He plans to relocate to [place]. He does not have a power mule operator or home dialysis center. He has mild shortness of breath. He denies pain. MD Complaint: shortness of breath -: week(s) (one week) Severity: mild Consistency: constant Improves With: nothing Worsens With: exertion Known History Of: congestive heart failure, other (ESRD) Context: other (ESRD ) ROS: Stated complaint: NEED DIALYSIS Other details as noted in HPI Comment: All other systems reviewed and negative Constitutional: denies: chills, fever, malaise Respiratory: shortness of breath. denies: cough Cardiovascular: denies: chest pain Gastrointestinal: denies: abdominal pain, nausea, vomiting Neurological: denies: headache - Past Medical History Previous Medical History?: Yes Hx Hypertension: Yes Hx Congestive Heart Failure: Yes Hx Diabetes: No Hx Renal Disease: Yes (MWF) Hx Asthma: No Hx COPD: No Hx HIV: No - Surgical History Past Surgical History?: Yes Hx Pacemaker: Yes Additional Surgical History: AV fistula, port-a-cath - Social History Smoking Status: Never Smoker Substance Use Type: None Past History Past Medical History: diabetes, dialysis, ESRD, GERD, heart failure, hypertension, hypothyroidism, other (H/O GI bleed) Past Surgical History: Other (AV fistula, port-a-cath,Pacemaker placement) Social history: no significant social history Family history: no significant family history Medications and Allergies Allergies Allergy/AdvReac Type Severity Reaction Status Date / Time Iodinated Contrast Media Allergy Unknown Hives Verified 01/21/18 11:36 Sulfa (Sulfonamide AdvReac Shortness Verified 01/21/18 11:36 Antibiotics) of Breath Home Medications Medication Instructions Recorded Confirmed Last Taken Type Ondansetron [Zofran ODT TAB] 4 mg PO Q8HR PRN #10 tab.rapdis 11/03/17 04/25/21 Unknown Rx AtorvaSTATin 10 mg PO QHS tablet 01/16/18 04/25/21 02/22/18 Rx Calcium Acetate [Phoslo] 1,334 mg PO TID #90 capsule 01/16/18 04/25/21 02/23/18 Rx Levothyroxine [Synthroid] 112 mcg PO DAILY@0600 #30 tablet 01/16/18 04/25/21 02/23/18 Rx Pantoprazole [Protonix TAB] 40 mg PO DAILY #30 tablet 01/16/18 04/25/21 02/22/18 Rx hydrALAZINE [Apresoline TAB] 50 mg PO BID #60 tablet 01/16/18 04/25/21 02/23/18 Rx ALBUTEROL Inhaler(NF) [VENTOLIN 1 puff IH Q4H PRN 1 Days #1 inha 01/19/18 04/25/21 Unknown Rx Inhaler(NF)] Benzonatate [Tessalon Perles] 100 mg PO Q8HR PRN #30 capsule 01/19/18 04/25/21 Unknown Rx Ibuprofen [Ibuprofen 800] 800 mg PO TID PRN #30 tablet 01/19/18 04/25/21 Unknown Rx Triamcinolone Aceton 0.1% (Nf) 1 applic TP BID #1 tube 01/19/18 04/25/21 Unknown Rx [Kenalog (NF)] dexAMETHasone [Decadron] 4 mg PO Q12H 2 Days #4 tablet 01/19/18 04/25/21 Unknown Rx Permethrin 5% [Acticin 5% CREAM] 1 applicatio TP ONCE 14 Days #1 01/27/18 04/25/21 02/10/18 08:00 Rx tube carvediloL [Coreg] 6.25 mg PO BID #60 tablet 02/12/18 04/25/21 02/23/18 Rx oxyCODONE /ACETAMINOPHEN [Percocet 1 tab PO Q6H PRN #8 tablet 02/12/18 04/25/21 Unknown Rx 5/325 mg] Aspirin EC [Halfprin EC] 81 mg PO QDAY #30 tablet. 02/21/18 04/25/21 02/22/18 Rx diphenhydrAMINE [Benadryl CAP] 50 mg PO Q8H PRN 02/24/18 04/25/21 02/23/18 History Active Meds: Active Medications Acetaminophen (Acetaminophen 325 Mg Tab) 650 mg PO Q4H PRN PRN Reason: Pain MILD(1-3)/Fever >100.5/ERAZO Dextrose (Dextrose 10% *Hypoglycemia) 0 ml IV PRN PRN; Protocol PRN Reason: Hypoglycemia Insulin Human Lispro (Insulin Lispro 100 Unit/Ml) 0 unit SUB-Q ACHS [facility]; Protocol Last Admin: 04/25/21 08:33 Dose: Not Given Magnesium Hydroxide (Magnesium Hydroxide (Mom) Oral Liqd Udc) 30 ml PO Q4H PRN PRN Reason: Constipation Morphine Sulfate (Morphine 2 Mg/1 Ml Inj) 2 mg IV Q4H PRN PRN Reason: Pain, Moderate (4-6) Morphine Sulfate (Morphine 4 Mg/1 Ml Inj) 4 mg IV Q4H PRN PRN Reason: Pain , Severe (7-10) Ondansetron HCl (Ondansetron 4 Mg/2 Ml Inj) 4 mg IV Q8H PRN PRN Reason: Nausea And Vomiting Sodium Chloride (Sodium Chloride 0.9% 10 Ml Flush Syringe) 10 ml IV BID [facility] Last Admin: 04/25/21 09:19 Dose: 10 ml Sodium Chloride (Sodium Chloride 0.9% 10 Ml Flush Syringe) 10 ml IV PRN PRN PRN Reason: LINE FLUSH Exam - Vital Signs Vital signs: Vital Signs Temp Pulse Resp BP Pulse Ox 98.7 F 87 18 113/75 97 04/24/21 16:50 04/24/21 16:50 04/24/21 16:50 04/24/21 16:50 04/24/21 16:50 - Physical Exam Narrative exam: - General Limitations: No Limitations General appearance: alert, in no apparent distress, other (mild work of breathing) - Head Head exam: Present: atraumatic, normocephalic - Eye Eye exam: Present: normal appearance, periorbital swelling - ENT ENT exam: Present: mucous membranes moist - Neck Neck exam: Present: normal inspection, full ROM - Respiratory Respiratory exam: Present: normal lung sounds bilaterally. Absent: respiratory distress, wheezes, rales, rhonchi - Cardiovascular Cardiovascular Exam: Present: regular rate, normal rhythm, normal heart sounds, other (right port-a-cath). Absent: systolic murmur, diastolic murmur, rubs, gallop - GI/Abdominal GI/Abdominal exam: Present: soft, normal bowel sounds. Absent: distended, tenderness, guarding, rebound - Rectal Rectal exam: Present: deferred - Extremities Exam Extremities exam: Present: normal inspection - Back Exam Back exam: Present: normal inspection - Neurological Exam Neurological exam: Present: alert, oriented X3 - Psychiatric Psychiatric exam: Present: normal affect, normal mood - Skin Skin exam: Present: warm, dry, intact, normal color. Absent: rash Results - Lab Results 04/25/21 Unknown 04/25/21 Unknown Most recent lab results Calcium 8.2 mg/dL (8.4-10.2) L 04/25/21 Unknown Assessment and Plan Impression: * ESRD * medical noncompliance * HTN * Anemia in esrd Plan: * hd today * rec dc home after hd and plan on return to [place] * uf as tolerated * renal diet * strict i/os
[2021-04-25] MEDS ORDERED: EPOETIN ALFA-EPBX 10,000 UNIT/1 ML VIAL IV PRN (09:38)
[2021-04-25] MEDS ORDERED: ALBUMIN HUMAN 25% (25 GM/100 ML) INJ IV PRN (09:38)
[2021-04-25] MEDS ORDERED: SODIUM CHLORIDE 0.9% 100 ML IV PRN (09:38)
--- NOTE | 2021-04-25 13:21 | Progress Note ---
Assessment and Plan Assessment and plan: #ESRD on HD #Medical noncompliance -Dialysis today -Patient has decided to relocate and stay in [place]; CM consult for outpatient HD -Counseled about importance of getting dialysis as scheduled -Nephrology following, assistance appreciated #Hyperkalemia -s/p medical management -expect improvement after dialysis today -will continue monitor #Normocytic anemia -Baseline unknown, hemoglobin 9.1 today -Transfuse for hemoglobin less than 7 -Continue Epogen with HD #Hypertension -Controlled -low dose BB restarted at home dose, will hold hydralazine for now #Type 2 diabetes -continue SSI #Hypothyroidism -continue synthroid at home dose #Chronic systolic heart failure -not in acute exacerbation, will continue to monitor History Interval history: Patient resting peacefully in bed. Denies shortness of breath, dyspnea on exertion and chest pain. Reports to have been an [place] since Thursday from [place]. Was following with a building trades teacher on [place] with MW schedule. Reports last HD session last Thursday. Hospitalist Physical - Physical exam Narrative exam: GENERAL: Well-developed well-nourished. In no acute distress. HEENT: Normocephalic. Atraumatic. NECK: Supple. CHEST/LUNGS: CTAB on room air HEART/CARDIOVASCULAR: RRR. No murmur, rubs or gallops appreciated. ABDOMEN: +BS. NT/ND. SKIN: No rashes noted. NEURO: No focal motor deficit. Follows all commands. MUSCULOSKELETAL: No joint effusion EXTREMITIES: Right upper extremity AV fistula with thrill. PSYCH: Cooperative. - Constitutional Vitals: Temp Pulse Resp BP Pulse Ox 98.0 F 71 16 125/84 96 04/25/21 11:40 04/25/21 11:40 04/25/21 12:37 04/25/21 11:40 04/25/21 12:37 General appearance: Present: no acute distress, well-nourished, other (Facial puffiness) Results - Labs CBC & Chem 7: 04/25/21 Unknown 04/25/21 Unknown Labs: Laboratory Last Values WBC 4.3 K/mm3 (4.5-11.0) L 04/25/21 Unknown RBC 3.22 M/mm3 (3.65-5.03) L 04/25/21 Unknown Hgb 9.1 gm/dl (11.8-15.2) L 04/25/21 Unknown Hct 28.6 % (35.5-45.6) L 04/25/21 Unknown MCV 89 fl (84-94) 04/25/21 Unknown MCH 28 pg (28-32) 04/25/21 Unknown MCHC 32 % (32-34) 04/25/21 Unknown RDW 20.1 % (13.2-15.2) H 04/25/21 Unknown Plt Count 120 K/mm3 (140-440) L 04/25/21 Unknown Lymph % (Auto) 8.7 % (13.4-35.0) L 04/25/21 Unknown [place] % (Auto) 7.4 % (0.0-7.3) H 04/25/21 Unknown Eos % (Auto) 0.1 % (0.0-4.3) 04/25/21 Unknown Baso % (Auto) 0.1 % (0.0-1.8) 04/25/21 Unknown Lymph # (Auto) 0.4 K/mm3 (1.2-5.4) L 04/25/21 Unknown [place] # (Auto) 0.3 K/mm3 (0.0-0.8) 04/25/21 Unknown Eos # (Auto) 0.0 K/mm3 (0.0-0.4) 04/25/21 Unknown Baso # (Auto) 0.1 K/mm3 (0.0-0.1) 04/25/21 Unknown Seg Neutrophils % 81.6 % (40.0-70.0) H 04/25/21 Unknown Seg Neutrophils # 3.5 K/mm3 (1.8-7.7) 04/25/21 Unknown Sodium 142 mmol/L (137-145) 04/25/21 Unknown Potassium 5.8 mmol/L (3.6-5.0) H 04/25/21 Unknown Chloride 99.8 mmol/L (98-107) 04/25/21 Unknown Carbon Dioxide 22 mmol/L (22-30) 04/25/21 Unknown Anion Gap 26 mmol/L 04/25/21 Unknown BUN 88 mg/dL (9-20) H 04/25/21 Unknown Creatinine 14.2 mg/dL (0.8-1.3) H 04/25/21 Unknown Estimated GFR 4 ml/min 04/25/21 Unknown BUN/Creatinine Ratio 6 % 04/25/21 Unknown Glucose 95 mg/dL (75-100) 04/25/21 Unknown POC Glucose 126 mg/dL (70-105) H 04/25/21 00:38 Calcium 8.2 mg/dL (8.4-10.2) L 04/25/21 Unknown Total Bilirubin 0.40 mg/dL (0.1-1.2) 04/24/21 18:23 AST 28 units/L (5-40) 04/24/21 18:23 ALT 20 units/L (7-56) 04/24/21 18:23 Alkaline Phosphatase 145 units/L (35-129) H 04/24/21 18:23 Total Protein 7.4 g/dL (6.3-8.2) 04/24/21 18:23 Albumin 3.7 g/dL (3.9-5) L 04/24/21 18:23 Albumin/Globulin Ratio 1.0 % 04/24/21 18:23 Active Medications - Current Medications Current Medications: Generic Name Dose Route Start Last Admin Trade Name Freq PRN Reason Stop Dose Admin Acetaminophen 650 mg 04/24/21 23:03 Acetaminophen 325 Mg Tab PO Q4H PRN Pain MILD(1-3)/Fever >100.5/ERAZO Albumin Human 25 gm 04/25/21 09:38 Albumin Human 25% (25 Gm/100 Ml) Inj IV DAVEY PRN Hypotension Dextrose 0 ml 04/24/21 23:13 Dextrose 10% *Hypoglycemia IV PRN PRN Hypoglycemia Protocol Epoetin Itz-epbx 10,000 unit 04/25/21 09:38 Epoetin Itz-Epbx 10,000 Unit/1 Ml Vial IV DAVEY PRN hemodialysis Sodium Chloride 100 mls @ 999 mls/hr 04/25/21 09:38 Nacl 0.9% IV DAVEY PRN Hypotension Insulin Human Lispro 0 unit 04/25/21 07:30 04/25/21 13:07 Insulin Lispro 100 Unit/Ml SUB-Q Not Given ACHS ROHIT Protocol Magnesium Hydroxide 30 ml 04/24/21 23:03 Magnesium Hydroxide (Mom) Oral Liqd Udc PO Q4H PRN Constipation Morphine Sulfate 2 mg 04/24/21 23:03 Morphine 2 Mg/1 Ml Inj IV Q4H PRN Pain, Moderate (4-6) Morphine Sulfate 4 mg 04/24/21 23:03 Morphine 4 Mg/1 Ml Inj IV Q4H PRN Pain , Severe (7-10) Ondansetron HCl 4 mg 04/24/21 23:03 Ondansetron 4 Mg/2 Ml Inj IV Q8H PRN Nausea And Vomiting Sodium Chloride 10 ml 04/25/21 10:00 04/25/21 09:19 Sodium Chloride 0.9% 10 Ml Flush Syringe IV 10 ml BID ROHIT Administration Sodium Chloride 10 ml 04/24/21 23:03 Sodium Chloride 0.9% 10 Ml Flush Syringe IV PRN PRN LINE FLUSH
[2021-04-25 15:45] LABS: Hepatitis B Surface Antigen Non-Reactive (Negative); Hepatitis C Virus Antibody Non-Reactive (NonReactive)
[2021-04-25] MEDS: ASPIRIN EC 81 MG TAB PO SCH (18:02)
[2021-04-25] MEDS: CALCIUM ACETATE 667 MG CAP PO SCH ×2 (18:02→21:30)
[2021-04-25] MEDS: carvediloL 6.25 MG TAB PO SCH (21:30)
[2021-04-26] MEDS: INSULIN LISPRO 100 UNIT/ML SUB-Q SCH ×3 (01:54→13:52)
[2021-04-26] MEDS ORDERED: LEVOTHYROXINE 112 MCG TAB PO SCH (06:00)
[2021-04-26 07:16] LABS: Calcium 8.6 mg/dL (8.4-10.2)
[2021-04-26] MEDS: carvediloL 6.25 MG TAB PO SCH (09:53)
[2021-04-26] MEDS: CALCIUM ACETATE 667 MG CAP PO SCH (09:53)
[2021-04-26] MEDS: ASPIRIN EC 81 MG TAB PO SCH (09:53)
[2021-04-26] MEDS ORDERED: PANTOPRAZOLE 40 MG TAB PO SCH (10:00)
--- NOTE | 2021-04-26 10:15 | Progress Note ---
Assessment and Plan Impression: * ESRD * medical noncompliance * HTN * Anemia in esrd Plan: * hd qMWF and prn * rec dc home after hd and plan on return to [place], notes reviewed * uf as tolerated * renal diet * strict i/os Subjective Date of service: 04/26/21 Principal diagnosis: esrd Interval history: chart and labs reviewed Objective - Exam Narrative Exam: - General Limitations: No Limitations General appearance: alert, in no apparent distress, other (mild work of breathing) - Head Head exam: Present: atraumatic, normocephalic - Eye Eye exam: Present: normal appearance, periorbital swelling - ENT ENT exam: Present: mucous membranes moist - Neck Neck exam: Present: normal inspection, full ROM - Respiratory Respiratory exam: Present: normal lung sounds bilaterally. Absent: respiratory distress, wheezes, rales, rhonchi - Cardiovascular Cardiovascular Exam: Present: regular rate, normal rhythm, normal heart sounds, other (right port-a-cath). Absent: systolic murmur, diastolic murmur, rubs, gallop - GI/Abdominal GI/Abdominal exam: Present: soft, normal bowel sounds. Absent: distended, tenderness, guarding, rebound - Rectal Rectal exam: Present: deferred - Extremities Exam Extremities exam: Present: normal inspection - Back Exam Back exam: Present: normal inspection - Neurological Exam Neurological exam: Present: alert, oriented X3 - Psychiatric Psychiatric exam: Present: normal affect, normal mood - Skin Skin exam: Present: warm, dry, intact, normal color. Absent: rash - Vital Signs Vital signs: Vital Signs - 12hr 04/25/21 04/26/21 04/26/21 23:32 03:59 09:53 Temperature 98.3 F 99.1 F Pulse Rate 90 92 H 78 Respiratory 16 18 Rate Blood Pressure 122/89 118/79 119/81 O2 Sat by Pulse 90 95 Oximetry - Lab 04/25/21 Unknown 04/26/21 06:52 Most recent lab results Calcium 8.6 mg/dL (8.4-10.2) 04/26/21 06:52 Medications & Allergies - Medications Allergies/Adverse Reactions: Allergies Iodinated Contrast Media Allergy (Unknown, Verified 01/21/18 11:36) Hives Sulfa (Sulfonamide Antibiotics) Adverse Reaction (Verified 01/21/18 11:36) Shortness of Breath Home Medications: Home Medications Medication Instructions Recorded Confirmed Last Taken Type Ondansetron [Zofran ODT TAB] 4 mg PO Q8HR PRN #10 tab.rapdis 11/03/17 04/26/21 Unknown Rx AtorvaSTATin 10 mg PO QHS tablet 01/16/18 04/26/21 02/22/18 Rx Pantoprazole [Protonix TAB] 40 mg PO DAILY #30 tablet 01/16/18 04/26/21 02/22/18 Rx carvediloL [Coreg] 6.25 mg PO BID #60 tablet 02/12/18 04/26/21 02/23/18 Rx diphenhydrAMINE [Benadryl CAP] 50 mg PO PRN PRN 02/24/18 04/26/21 02/23/18 History Ferric Citrate (Nf) [Auryxia] 420 mg PO TIDWM 04/26/21 04/26/21 Unknown History Levothyroxine Sodium [Synthroid] 200 mcg PO QDAY 04/26/21 04/26/21 Unknown History Oxycodone HCl [oxyCODONE] 10 mg PO QID PRN 04/26/21 04/26/21 Unknown History Active Medications: Generic Name Dose Route Start Last Admin Trade Name Freq PRN Reason Stop Dose Admin Acetaminophen 650 mg 04/24/21 23:03 Acetaminophen 325 Mg Tab PO Q4H PRN Pain MILD(1-3)/Fever >100.5/ERAZO Albumin Human 25 gm 04/25/21 09:38 Albumin Human 25% (25 Gm/100 Ml) Inj IV DAVEY PRN Hypotension Aspirin 81 mg 04/25/21 14:00 04/26/21 09:53 Aspirin Ec 81 Mg Tab PO 81 mg QDAY ROHIT Administration Atorvastatin Calcium 10 mg 04/25/21 22:00 04/25/21 21:31 Atorvastatin 10 Mg Tab PO 10 mg QHS ROHIT Administration Calcium Acetate 1,334 mg 04/25/21 14:00 04/26/21 09:53 Calcium Acetate 667 Mg Cap PO 1,334 mg TID ROHIT Administration Carvedilol 6.25 mg 04/25/21 22:00 04/26/21 09:53 Carvedilol 6.25 Mg Tab PO 6.25 mg BID ROHIT Administration Dextrose 0 ml 04/24/21 23:13 Dextrose 10% *Hypoglycemia IV PRN PRN Hypoglycemia Protocol Epoetin Itz-epbx 10,000 unit 04/25/21 09:38 04/25/21 15:00 Epoetin Itz-Epbx 10,000 Unit/1 Ml Vial IV 10,000 unit DAVEY PRN Administration hemodialysis Sodium Chloride 100 mls @ 999 mls/hr 04/25/21 09:38 Nacl 0.9% IV DAVEY PRN Hypotension Insulin Human Lispro 0 unit 04/25/21 07:30 04/26/21 09:54 Insulin Lispro 100 Unit/Ml SUB-Q Not Given ACHS [facility] Protocol Levothyroxine Sodium 112 mcg 04/26/21 06:00 04/26/21 06:17 Levothyroxine 112 Mcg Tab PO 112 mcg DAILY@0600 [facility] Administration Magnesium Hydroxide 30 ml 04/24/21 23:03 Magnesium Hydroxide (Mom) Oral Liqd Udc PO Q4H PRN Constipation Morphine Sulfate 2 mg 04/24/21 23:03 Morphine 2 Mg/1 Ml Inj IV Q4H PRN Pain, Moderate (4-6) Morphine Sulfate 4 mg 04/24/21 23:03 Morphine 4 Mg/1 Ml Inj IV Q4H PRN Pain , Severe (7-10) Ondansetron HCl 4 mg 04/24/21 23:03 Ondansetron 4 Mg/2 Ml Inj IV Q8H PRN Nausea And Vomiting Pantoprazole Sodium 40 mg 04/26/21 10:00 04/26/21 09:55 Pantoprazole 40 Mg Tab PO Not Given DAILY ROHIT Sodium Chloride 10 ml 04/25/21 10:00 04/25/21 21:31 Sodium Chloride 0.9% 10 Ml Flush Syringe IV 10 ml BID ROHIT Administration Sodium Chloride 10 ml 04/24/21 23:03 Sodium Chloride 0.9% 10 Ml Flush Syringe IV PRN PRN LINE FLUSH
--- NOTE | 2021-04-26 12:39 | Progress Note ---
Assessment and Plan Assessment and plan: #ESRD on HD #Medical noncompliance -Dialysis again today -Patient has decided to relocate and stay in [place]; CM consult for outpatient HD -Counseled about importance of getting dialysis as scheduled -Nephrology following, assistance appreciated #Hyperkalemia -s/p medical management -expect improvement after dialysis today -will continue monitor #Normocytic anemia -Transfuse for hemoglobin less than 7 -likely secondary to chronic kidney disease -Continue Epogen with HD #Hypertension -Controlled -continue low dose BB at home dose, will hold hydralazine for now #Type 2 diabetes -continue SSI #Hypothyroidism -continue synthroid at home dose #Chronic systolic heart failure -not in acute exacerbation, will continue to monitor History Interval history: Patient sitting in chair. Request to speak with case management. He denies chest pain, shortness of breath at this time. No other complaints. Hospitalist Physical - Physical exam Narrative exam: GENERAL: Well-developed well-nourished. In no acute distress. HEENT: Normocephalic. Atraumatic. NECK: Supple. CHEST/LUNGS: CTAB on room air HEART/CARDIOVASCULAR: RRR. No murmur, rubs or gallops appreciated. ABDOMEN: +BS. NT/ND. SKIN: No rashes noted. NEURO: No focal motor deficit. Follows all commands. MUSCULOSKELETAL: No joint effusion EXTREMITIES: Right upper extremity AV fistula with thrill. PSYCH: Cooperative. - Constitutional Vitals: Temp Pulse Resp BP Pulse Ox 99.8 F H 78 18 119/81 98 04/26/21 08:53 04/26/21 09:53 04/26/21 08:53 04/26/21 09:53 04/26/21 08:42 General appearance: Present: no acute distress, well-nourished, other (Facial puffiness) Results - Labs CBC & Chem 7: 04/25/21 Unknown 04/26/21 06:52 Labs: Laboratory Last Values WBC 4.3 K/mm3 (4.5-11.0) L 04/25/21 Unknown RBC 3.22 M/mm3 (3.65-5.03) L 04/25/21 Unknown Hgb 9.1 gm/dl (11.8-15.2) L 04/25/21 Unknown Hct 28.6 % (35.5-45.6) L 04/25/21 Unknown MCV 89 fl (84-94) 04/25/21 Unknown MCH 28 pg (28-32) 04/25/21 Unknown MCHC 32 % (32-34) 04/25/21 Unknown RDW 20.1 % (13.2-15.2) H 04/25/21 Unknown Plt Count 120 K/mm3 (140-440) L 04/25/21 Unknown Lymph % (Auto) 8.7 % (13.4-35.0) L 04/25/21 Unknown [place] % (Auto) 7.4 % (0.0-7.3) H 04/25/21 Unknown Eos % (Auto) 0.1 % (0.0-4.3) 04/25/21 Unknown Baso % (Auto) 0.1 % (0.0-1.8) 04/25/21 Unknown Lymph # (Auto) 0.4 K/mm3 (1.2-5.4) L 04/25/21 Unknown [place] # (Auto) 0.3 K/mm3 (0.0-0.8) 04/25/21 Unknown Eos # (Auto) 0.0 K/mm3 (0.0-0.4) 04/25/21 Unknown Baso # (Auto) 0.1 K/mm3 (0.0-0.1) 04/25/21 Unknown Seg Neutrophils % 81.6 % (40.0-70.0) H 04/25/21 Unknown Seg Neutrophils # 3.5 K/mm3 (1.8-7.7) 04/25/21 Unknown Sodium 139 mmol/L (137-145) 04/26/21 06:52 Potassium 5.5 mmol/L (3.6-5.0) H 04/26/21 06:52 Chloride 98.3 mmol/L (98-107) 04/26/21 06:52 Carbon Dioxide 26 mmol/L (22-30) 04/26/21 06:52 Anion Gap 20 mmol/L 04/26/21 06:52 BUN 47 mg/dL (9-20) H 04/26/21 06:52 Creatinine 10.0 mg/dL (0.8-1.3) H 04/26/21 06:52 Estimated GFR 6 ml/min 04/26/21 06:52 BUN/Creatinine Ratio 5 % 04/26/21 06:52 Glucose 75 mg/dL (75-100) 04/26/21 06:52 POC Glucose 71 mg/dL (70-105) 04/26/21 11:41 Calcium 8.6 mg/dL (8.4-10.2) 04/26/21 06:52 Total Bilirubin 0.40 mg/dL (0.1-1.2) 04/24/21 18:23 AST 28 units/L (5-40) 04/24/21 18:23 ALT 20 units/L (7-56) 04/24/21 18:23 Alkaline Phosphatase 145 units/L (35-129) H 04/24/21 18:23 Total Protein 7.4 g/dL (6.3-8.2) 04/24/21 18:23 Albumin 3.7 g/dL (3.9-5) L 04/24/21 18:23 Albumin/Globulin Ratio 1.0 % 04/24/21 18:23 Hepatitis A IgM Ab Non-reactive (NonReactive) 04/25/21 10:18 Hep Bs Antigen Non-reactive (Negative) 04/25/21 10:18 Hep B Core IgM Ab Non-reactive (NonReactive) 04/25/21 10:18 Hepatitis C Antibody Non-reactive (NonReactive) 04/25/21 10:18 Active Medications - Current Medications Current Medications: Generic Name Dose Route Start Last Admin Trade Name Freq PRN Reason Stop Dose Admin Acetaminophen 650 mg 04/24/21 23:03 Acetaminophen 325 Mg Tab PO Q4H PRN Pain MILD(1-3)/Fever >100.5/ERAZO Albumin Human 25 gm 04/25/21 09:38 Albumin Human 25% (25 Gm/100 Ml) Inj IV DAVEY PRN Hypotension Aspirin 81 mg 04/25/21 14:00 04/26/21 09:53 Aspirin Ec 81 Mg Tab PO 81 mg QDAY ROHIT Administration Atorvastatin Calcium 10 mg 04/25/21 22:00 04/25/21 21:31 Atorvastatin 10 Mg Tab PO 10 mg QHS ROHIT Administration Calcium Acetate 1,334 mg 04/25/21 14:00 04/26/21 09:53 Calcium Acetate 667 Mg Cap PO 1,334 mg TID ROHIT Administration Carvedilol 6.25 mg 04/25/21 22:00 04/26/21 09:53 Carvedilol 6.25 Mg Tab PO 6.25 mg BID ROHIT Administration Dextrose 0 ml 04/24/21 23:13 Dextrose 10% *Hypoglycemia IV PRN PRN Hypoglycemia Protocol Epoetin Itz-epbx 10,000 unit 04/25/21 09:38 04/25/21 15:00 Epoetin Itz-Epbx 10,000 Unit/1 Ml Vial IV 10,000 unit DAVEY PRN Administration hemodialysis Sodium Chloride 100 mls @ 999 mls/hr 04/25/21 09:38 Nacl 0.9% IV DAVEY PRN Hypotension Insulin Human Lispro 0 unit 04/25/21 07:30 04/26/21 09:54 Insulin Lispro 100 Unit/Ml SUB-Q Not Given ACHS [facility] Protocol Levothyroxine Sodium 112 mcg 04/26/21 06:00 04/26/21 06:17 Levothyroxine 112 Mcg Tab PO 112 mcg DAILY@0600 ROHIT Administration Magnesium Hydroxide 30 ml 04/24/21 23:03 Magnesium Hydroxide (Mom) Oral Liqd Udc PO Q4H PRN Constipation Morphine Sulfate 2 mg 04/24/21 23:03 Morphine 2 Mg/1 Ml Inj IV Q4H PRN Pain, Moderate (4-6) Morphine Sulfate 4 mg 04/24/21 23:03 Morphine 4 Mg/1 Ml Inj IV Q4H PRN Pain , Severe (7-10) Ondansetron HCl 4 mg 04/24/21 23:03 Ondansetron 4 Mg/2 Ml Inj IV Q8H PRN Nausea And Vomiting Pantoprazole Sodium 40 mg 04/26/21 10:00 04/26/21 09:55 Pantoprazole 40 Mg Tab PO Not Given DAILY ROHIT Sodium Chloride 10 ml 04/25/21 10:00 04/25/21 21:31 Sodium Chloride 0.9% 10 Ml Flush Syringe IV 10 ml BID ROHIT Administration Sodium Chloride 10 ml 04/24/21 23:03 Sodium Chloride 0.9% 10 Ml Flush Syringe IV PRN PRN LINE FLUSH
[2021-04-26 13:27] VITALS: BP 119/81
== END 2021-04-26 14:55 | disposition left against medical advice (07) | DRG 640 ==
LOC: ED 16:28 → 4A 23:03 → OBSVTOIN 04-25 14:25
PROVIDERS: ADMIT Internal Medicine Geriatric Medicine; ATTEND Student in an Organized Health Care Education/Training Program
PROC: 5A1D70Z Performance of Urinary Filtration, Intermittent, Less than 6 Hours Per Day (ICD-10-PCS; principal; 2021-04-25)
DX: E87.5 Hyperkalemia (principal); N18.6 End stage renal disease; I13.2 Hypertensive heart and chronic kidney disease with heart failure and with stage 5 chronic kidney disease, or end stage renal disease; I50.20 Unspecified systolic (congestive) heart failure; I50.22 Chronic systolic (congestive) heart failure; K74.60 Unspecified cirrhosis of liver; D63.1 Anemia in chronic kidney disease; Z91.14 Patient's other noncompliance with medication regimen; E03.9 Hypothyroidism, unspecified; Z20.822 Contact with and (suspected) exposure to COVID-19
CPT/HCPCS: 36415; 80048; 80053; 80074; 82962; 85025; 94644; G0378; J3490; J0610; J0885; P9047; U0003

== ENCOUNTER 2021-04-28 19:43 | Emergency (ER) | payer MEDICARE ==
[2021-04-28 21:33] VITALS: BP 120/81
== END 2021-04-28 21:45 | disposition left against medical advice (07) ==
LOC: ED 19:43
DX: M79.673 Pain in unspecified foot (principal); Z53.21 Procedure and treatment not carried out due to patient leaving prior to being seen by health care provider

== ENCOUNTER 2021-07-09 16:56 | Emergency (ER) | payer MEDICARE ==
[2021-07-09 17:10] VITALS: BP 172/117
[2021-07-09] MEDS ORDERED: ONDANSETRON 4 MG ODT TAB PO ONE (21:07)
[2021-07-09] MEDS ORDERED: HYDROcodone/ACETAMINOPHEN 5-325 MG TAB PO ONE (21:07)
--- NOTE | 2021-07-09 21:17 | Emergency Department Report ---
ED Extremity Problem HPI - General Chief complaint: Extremity Injury, Upper Stated complaint: SWOLLEN LT ARM Source: patient Mode of arrival: Wheelchair Limitations: Physical Limitation - History of Present Illness Initial comments: Patient is a 60-year-old -Swiss male with a history of fdn-vaqdgki-vibtigbwt diabetes, hypertension, cardiomyopathy, CHF, ESRD on hemodialysis who presents to the ED with complaint of left upper arm pain and swelling after having peripheral venipuncture on the left antecubital area at another hospital 1 week ago. Patient states that the pain and swelling is worsened in the last 3 days. Patient denies chest pain or shortness of breath, dizziness, syncope, numbness and tingling or weakness of left upper extremity, neck pain, sore throat, fever and chills, headache, traumatic injury or heavy lifting. MD Complaint: extremity pain (left forearm and upper arm pain and swelling) -: Sudden, week(s) (1) Location: left, upper extremity Radiation: proximal Severity scale (0 -10): 4 Quality: aching, sharp Consistency: constant Improves with: nothing Worsens with: weight bearing, palpation Associated Symptoms: denies other symptoms. denies: chest pain, shortness of breath, fever, myalgias, arthralgias, rash, other - Related Data Home Medications Medication Instructions Recorded Confirmed Last Taken diphenhydrAMINE [Benadryl CAP] 50 mg PO PRN PRN 02/24/18 04/26/21 02/23/18 Ferric Citrate (Nf) [Auryxia] 420 mg PO TIDWM 04/26/21 04/26/21 Unknown Levothyroxine Sodium [Synthroid] 200 mcg PO QDAY 04/26/21 04/26/21 Unknown Oxycodone HCl [oxyCODONE] 10 mg PO QID PRN 04/26/21 04/26/21 Unknown Previous Rx's Medication Instructions Recorded Last Taken Type Ondansetron [Zofran ODT TAB] 4 mg PO Q8HR PRN #10 tab.rapdis 11/03/17 Unknown Rx AtorvaSTATin 10 mg PO QHS tablet 01/16/18 02/22/18 Rx Pantoprazole [Protonix TAB] 40 mg PO DAILY #30 tablet 01/16/18 02/22/18 Rx carvediloL [Coreg] 6.25 mg PO BID #60 tablet 02/12/18 02/23/18 Rx Allergies Allergy/AdvReac Type Severity Reaction Status Date / Time Iodinated Contrast Media Allergy Unknown Hives Verified 07/09/21 17:10 Sulfa (Sulfonamide AdvReac Shortness Verified 07/09/21 17:10 Antibiotics) of Breath ED Review of Systems ROS: Stated complaint: SWOLLEN LT ARM Other details as noted in HPI Constitutional: denies: chills, fever Eyes: denies: eye pain, eye discharge, vision change ENT: denies: ear pain, throat pain Respiratory: denies: cough, shortness of breath, wheezing Cardiovascular: denies: chest pain, palpitations Endocrine: no symptoms reported Gastrointestinal: denies: abdominal pain, nausea, diarrhea Genitourinary: denies: urgency, dysuria Musculoskeletal: arthralgia (Left upper arm and forearm pain and swelling). denies: back pain, joint swelling Skin: denies: rash, lesions Neurological: denies: headache, weakness, paresthesias Psychiatric: denies: anxiety, depression Hematological/Lymphatic: denies: easy bleeding, easy bruising ED Past Medical Hx - Past Medical History Previous Medical History?: Yes Hx Hypertension: Yes Hx Congestive Heart Failure: Yes Hx Diabetes: No Hx Renal Disease: Yes (t,th,s) Hx Asthma: No Hx COPD: No Hx HIV: No Additional medical history: Chronic pain in feet. - Surgical History Hx Pacemaker: Yes Additional Surgical History: AV fistula, port-a-cath - Social History Smoking Status: Former Smoker Substance Use Type: Alcohol - Medications Home Medications: Home Medications Medication Instructions Recorded Confirmed Last Taken Type Ondansetron [Zofran ODT TAB] 4 mg PO Q8HR PRN #10 tab.rapdis 11/03/17 04/26/21 Unknown Rx AtorvaSTATin 10 mg PO QHS tablet 01/16/18 04/26/21 02/22/18 Rx Pantoprazole [Protonix TAB] 40 mg PO DAILY #30 tablet 01/16/18 04/26/21 02/22/18 Rx carvediloL [Coreg] 6.25 mg PO BID #60 tablet 02/12/18 04/26/21 02/23/18 Rx diphenhydrAMINE [Benadryl CAP] 50 mg PO PRN PRN 02/24/18 04/26/21 02/23/18 History Ferric Citrate (Nf) [Auryxia] 420 mg PO TIDWM 04/26/21 04/26/21 Unknown History Levothyroxine Sodium [Synthroid] 200 mcg PO QDAY 04/26/21 04/26/21 Unknown History Oxycodone HCl [oxyCODONE] 10 mg PO QID PRN 04/26/21 04/26/21 Unknown History ED Physical Exam - General Limitations: Physical Limitation General appearance: alert, in no apparent distress - Head Head exam: Present: atraumatic, normocephalic, normal inspection - Eye Eye exam: Present: normal appearance, PERRL, EOMI Pupils: Present: normal accommodation - ENT ENT exam: Present: normal exam, normal orophraynx, mucous membranes moist, TM's normal bilaterally, normal external ear exam - Neck Neck exam: Present: normal inspection, full ROM. Absent: tenderness - Respiratory Respiratory exam: Present: normal lung sounds bilaterally. Absent: respiratory distress, wheezes, rales, rhonchi, chest wall tenderness, accessory muscle use, prolonged expiratory - Cardiovascular Cardiovascular Exam: Present: regular rate, normal rhythm, normal heart sounds. Absent: systolic murmur, diastolic murmur, rubs, gallop - GI/Abdominal GI/Abdominal exam: Present: soft, normal bowel sounds. Absent: tenderness, guarding, rebound, hyperactive bowel sounds, mass, pulsatile mass - Extremities Exam Extremities exam: Present: normal inspection, full ROM, tenderness (Palpable mild left upper and left forearm pain and swelling), normal capillary refill. Absent: pedal edema, joint swelling, calf tenderness, other - Back Exam Back exam: Present: normal inspection, full ROM. Absent: tenderness, CVA tenderness (R), muscle spasm, paraspinal tenderness, vertebral tenderness - Neurological Exam Neurological exam: Present: alert, oriented X3, CN II-XII intact, normal gait, reflexes normal - Psychiatric Psychiatric exam: Present: normal affect, normal mood - Skin Skin exam: Present: warm, dry, intact, normal color. Absent: rash ED Course Vital Signs 07/09/21 17:08 Temperature 98.3 F Pulse Rate 94 H Respiratory 18 Rate Blood Pressure 172/117 O2 Sat by Pulse 94 Oximetry ED Medical Decision Making - Medical Decision Making This is a 60-year-old -Swiss male with a history of iej-hxeewia-wktmvqeac diabetes, hypertension, cardiomyopathy, CHF, ESRD on hemodialysis who presents to the ED with complaint of left upper arm pain and swelling after having peripheral venipuncture on the left antecubital area at another hospital 1 week ago. Patient states that the pain and swelling is worsened in the last 3 days. In the ED, patient is alert and oriented x3 and is not in any distress. Patient was treated for pain in the ED. Patient was discharged home with a prescription for left upper arm Doppler ultrasound for the next day. Patient was advised to return to the ED in the morning to have vascular left upper Doppler ultrasound performed and completed. Patient was advised return to the ED immediately if symptoms get worse. - Differential Diagnosis DVT; muscle strain; muscle spasm; thrombophlebitis Critical care attestation.: If time is entered above; I have spent that time in minutes in the direct care of this critically ill patient, excluding procedure time. ED Disposition Clinical Impression: Left upper arm pain, Swelling of left upper extremity Disposition: 01 HOME / SELF CARE / HOMELESS Is pt being admited?: No Does the pt Need Aspirin: No Condition: Stable Instructions: Pain Without a Known Cause, Muscle Cramps and Spasms Additional Instructions: Take medication with food, drink plenty of fluids, return to the ED immediately if symptoms get worse. Otherwise return to the ED in the morning at about 8:30 AM to have the Doppler left upper extremity vascular ultrasound to rule out DVT. Referrals: [facility] [Provider Group] - 3-5 Days Time of Disposition: 21:18 Print Language: BELARUSIAN
== END 2021-07-10 07:00 | disposition home or self-care (01) ==
LOC: ED 16:56
DX: M79.622 Pain in left upper arm (principal); R22.32 Localized swelling, mass and lump, left upper limb
CPT/HCPCS: 99283; J3490; Q0162

== ENCOUNTER 2021-08-10 03:33 | Emergency (ER) | payer MEDICARE ==
[2021-08-10] MEDS ORDERED: IPRATROPIUM 0.02% NEBU 2.5 ML IH ONE (03:50)
[2021-08-10] MEDS ORDERED: ALBUTEROL 2.5 MG/3 ML NEBU IH ONE (03:50)
[2021-08-10 04:25] LABS: Eosinophils # (Auto) 0.1 K/mm3 (0.0-0.4); Eosinophils % (Auto) 1.7 % (0.0-4.3); Hematocrit 33.6 % (35.5-45.6); Hemoglobin 10.6 gm/dl (11.8-15.2); Lymphocytes # (Auto) 0.2 K/mm3 (1.2-5.4); Lymphocytes % (Auto) 4.6 % (13.4-35.0); Mean Corpuscular HGB Conc 31 % (32-34); Mean Corpuscular Volume 87 fl (84-94); Monocytes # (Auto) 0.4 K/mm3 (0.0-0.8); Monocytes % (Auto) 9.2 % (0.0-7.3); Red Blood Count 3.89 M/mm3 (3.65-5.03)
--- NOTE | 2021-08-10 04:28 | XRay Report ---
CHEST 1 VIEW 08/10/2021 4:08 AM INDICATION / CLINICAL INFORMATION: Dyspnea. COMPARISON: 2 views of the chest from 04/30/2021. FINDINGS: SUPPORT DEVICES: Unchanged right Port-A-Cath. HEART / MEDIASTINUM: Stable. LUNGS / PLEURA: No significant pulmonary abnormality. No significant pleural effusion. No pneumothora x. ADDITIONAL FINDINGS: No significant additional findings. IMPRESSION: 1. No acute abnormality of the chest. No significant interval changes. Signer Name: Gilles Sorto MD Signed: 08/10/2021 4:24 AM Workstation Name: [id number]
[2021-08-10 04:30] LABS: Platelet Count 87 K/mm3 (140-440); Red Cell Distribution Width 24.6 % (13.2-15.2)
[2021-08-10 04:35] LABS: INR 1.27 (0.87-1.13)
[2021-08-10 04:37] LABS: Creatine Kinase MB 5.2 ng/mL (0.0-4.0)
[2021-08-10 04:38] LABS: Albumin 4.4 g/dL (3.9-5); Calcium 6.7 mg/dL (8.4-10.2)
--- NOTE | 2021-08-10 06:10 | Emergency Department Report ---
ED Shortness of Breath HPI - General Chief Complaint: Dyspnea/Respdistress Stated Complaint: SOB Time Seen by Provider: 08/10/21 03:50 Source: patient, EMS Mode of arrival: Stretcher Limitations: No Limitations - History of Present Illness Initial Comments: Missed dialysis on . Now MITCHELL. Was given high-arvind O2 and felt better. 60 years old with CHF , ESRD on dilaysis here today beause of SOB , he missed dialysis yesterday - Related Data Home Medications Medication Instructions Recorded Confirmed Last Taken diphenhydrAMINE [Benadryl CAP] 50 mg PO PRN PRN 02/24/18 04/26/21 02/23/18 Ferric Citrate (Nf) [Auryxia] 420 mg PO TIDWM 04/26/21 04/26/21 Unknown Levothyroxine Sodium [Synthroid] 200 mcg PO QDAY 04/26/21 04/26/21 Unknown Oxycodone HCl [oxyCODONE] 10 mg PO QID PRN 04/26/21 04/26/21 Unknown Previous Rx's Medication Instructions Recorded Last Taken Type Ondansetron [Zofran ODT TAB] 4 mg PO Q8HR PRN #10 tab.rapdis 11/03/17 Unknown Rx AtorvaSTATin 10 mg PO QHS tablet 01/16/18 02/22/18 Rx Pantoprazole [Protonix TAB] 40 mg PO DAILY #30 tablet 01/16/18 02/22/18 Rx carvediloL [Coreg] 6.25 mg PO BID #60 tablet 02/12/18 02/23/18 Rx Allergies Allergy/AdvReac Type Severity Reaction Status Date / Time Iodinated Contrast Media Allergy Unknown Hives Verified 07/09/21 17:10 Sulfa (Sulfonamide AdvReac Shortness Verified 07/09/21 17:10 Antibiotics) of Breath ED Review of Systems ROS: Stated complaint: SOB Other details as noted in HPI Constitutional: denies: chills, fever Eyes: denies: eye pain, eye discharge, vision change ENT: denies: ear pain, throat pain Respiratory: denies: cough, shortness of breath, wheezing Cardiovascular: denies: chest pain, palpitations Endocrine: no symptoms reported Gastrointestinal: denies: abdominal pain, nausea, diarrhea Genitourinary: denies: urgency, dysuria Musculoskeletal: denies: back pain, joint swelling, arthralgia Skin: denies: rash, lesions Neurological: denies: headache, weakness, paresthesias Psychiatric: denies: anxiety, depression Hematological/Lymphatic: denies: easy bleeding, easy bruising ED Past Medical Hx - Past Medical History Previous Medical History?: Yes Hx Hypertension: Yes Hx Congestive Heart Failure: Yes Hx Diabetes: No Hx Renal Disease: Yes (t,th,s) Hx Asthma: No Hx COPD: No Hx HIV: No Additional medical history: Chronic pain in feet. - Surgical History Past Surgical History?: Yes Hx Pacemaker: Yes Additional Surgical History: AV fistula, port-a-cath - Social History Smoking Status: Never Smoker Substance Use Type: None - Medications Home Medications: Home Medications Medication Instructions Recorded Confirmed Last Taken Type Ondansetron [Zofran ODT TAB] 4 mg PO Q8HR PRN #10 tab.rapdis 11/03/17 04/26/21 Unknown Rx AtorvaSTATin 10 mg PO QHS tablet 01/16/18 04/26/21 02/22/18 Rx Pantoprazole [Protonix TAB] 40 mg PO DAILY #30 tablet 01/16/18 04/26/21 02/22/18 Rx carvediloL [Coreg] 6.25 mg PO BID #60 tablet 02/12/18 04/26/21 02/23/18 Rx diphenhydrAMINE [Benadryl CAP] 50 mg PO PRN PRN 02/24/18 04/26/21 02/23/18 History Ferric Citrate (Nf) [Auryxia] 420 mg PO TIDWM 04/26/21 04/26/21 Unknown History Levothyroxine Sodium [Synthroid] 200 mcg PO QDAY 04/26/21 04/26/21 Unknown Hi story Oxycodone HCl [oxyCODONE] 10 mg PO QID PRN 04/26/21 04/26/21 Unknown History ED Physical Exam - General Limitations: No Limitations General appearance: alert, in distress - Head Head exam: Present: atraumatic, normocephalic - Eye Eye exam: Present: normal appearance - ENT ENT exam: Present: mucous membranes moist - Neck Neck exam: Present: normal inspection - Respiratory Respiratory exam: Present: normal lung sounds bilaterally, rales, rhonchi. Absent: respiratory distress - Cardiovascular Cardiovascular Exam: Present: normal rhythm, tachycardia. Absent: systolic murmur, diastolic murmur, rubs, gallop - GI/Abdominal GI/Abdominal exam: Present: soft, normal bowel sounds - Rectal Rectal exam: Present: deferred - Extremities Exam Extremities exam: Present: normal inspection - Back Exam Back exam: Present: normal inspection - Neurological Exam Neurological exam: Present: alert, oriented X3 - Psychiatric Psychiatric exam: Present: normal affect, normal mood - Skin Skin exam: Present: warm, dry, intact, normal color. Absent: rash ED Course Vital Signs 08/10/21 08/10/21 08/10/21 03:40 04:00 04:01 Temperature 98 F Pulse Rate 88 80 Pulse Rate [ Bilateral] Respiratory 22 20 20 Rate Respiratory Rate [Bilateral ] Blood Pressure 165/108 134/92 O2 Sat by Pulse 100 100 100 Oximetry 08/10/21 08/10/21 08/10/21 04:15 04:30 04:31 Temperature Pulse Rate 77 81 Pulse Rate [ 77 Bilateral] Respiratory 16 22 Rate Respiratory 20 Rate [Bilateral ] Blood Pressure 129/88 128/87 O2 Sat by Pulse 100 99 Oximetry 08/10/21 08/10/21 08/10/21 04:45 05:01 05:15 Temperature Pulse Rate 78 80 77 Pulse Rate [ Bilateral] Respiratory 20 22 20 Rate Respiratory Rate [Bilateral ] Blood Pressure 137/97 144/94 137/86 O2 Sat by Pulse 99 100 99 Oximetry 08/10/21 08/10/21 08/10/21 06:01 06:15 06:31 Temperature Pulse Rate 75 76 75 Pulse Rate [ Bilateral] Respiratory 12 13 10 L Rate Respiratory Rate [Bilateral ] Blood Pressure 133/91 128/96 134/101 O2 Sat by Pulse 95 94 94 Oximetry 08/10/21 08/10/21 08/10/21 06:45 07:01 07:15 Temperature Pulse Rate 77 73 76 Pulse Rate [ Bilateral] Respiratory 17 28 H 20 Rate Respiratory Rate [Bilateral ] Blood Pressure 112/77 123/56 129/86 O2 Sat by Pulse 71 L 94 95 Oximetry 08/10/21 07:30 Temperature Pulse Rate Pulse Rate [ Bilateral] Respiratory Rate Respiratory Rate [Bilateral ] Blood Pressure 129/86 O2 Sat by Pulse 95 Oximetry ED Medical Decision Making - Lab Data Result diagrams: 08/10/21 04:05 08/10/21 04:05 Critical care attestation.: If time is entered above; I have spent that time in minutes in the direct care of this critically ill patient, excluding procedure time. ED Disposition Clinical Impression: ESRD (end stage renal disease) on dialysis, Chronic systolic heart failure, CHF (congestive heart failure), Shortness of breath Disposition: ADMITTED INPATIENT Is pt being admited?: Yes Does the pt Need Aspirin: No Condition: Stable Referrals: PRIMARY CARE, [Primary Care Provider] - 3-5 Days
[2021-08-10 07:07] LABS: Chol/HDL Ratio 2.73 %
[2021-08-10 07:38] VITALS: BP 129/86
--- NOTE | 2021-08-11 18:13 | Electrocardiograph Report ---
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: [place] : 1960 Requested By: CAROLINE JAIMES Order Number: [id number] Reading MD: Malini Edmond Measurements Intervals [place] Rate: 82 P: 49 [place]: 202 QRS: -46 QRSD: 115 T: 86 QT: 450 QTc: 525 Interpretive Statements Sinus rhythm LAD, consider left anterior fascicular block Low voltage, extremity leads Nonspecific T abnormalities, lateral leads Prolonged QT interval Compared to ECG 04/30/2021 13:03:49 Low QRS voltage now present T-wave abnormality now present Prolonged QT interval now present First degree AV block no longer present Left bundle-branch block no longer present Electronically Signed On 08-11-2021 18:13:05 EDT by Malini Edmond
--- NOTE | 2021-08-11 18:13 | Electrocardiograph Report ---
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: [place] : 1960 Requested By: DESTINY STARKEY Order Number: [id number] Reading MD: Malini Edmond Measurements Intervals [place] Rate: 81 P: 14 [place]: 204 QRS: -45 QRSD: 121 T: 91 QT: 454 QTc: 528 Interpretive Statements Sinus rhythm Paired ventricular premature complexes Nonspecific IVCD with LAD Inferior infarct, old Nonspecific T abnormalities, lateral leads Compared to ECG 04/30/2021 13:03:49 Ventricular premature complex(es) now present Intraventricular conduction delay now present Myocardial infarct finding now present T-wave abnormality now present First degree AV block no longer present Left bundle-branch block no longer present Electronically Signed On 08-11-2021 18:12:53 EDT by Malini Edmond
== END 2021-08-10 07:20 | disposition admitted as inpatient to this hospital (09) ==
LOC: ED 03:33
DX: E11.22 Type 2 diabetes mellitus with diabetic chronic kidney disease (principal); I13.2 Hypertensive heart and chronic kidney disease with heart failure and with stage 5 chronic kidney disease, or end stage renal disease; I50.22 Chronic systolic (congestive) heart failure; N18.6 End stage renal disease; R06.02 Shortness of breath; Z91.041 Radiographic dye allergy status; Z88.2 Allergy status to sulfonamides
CPT/HCPCS: 36415; 71045; 80053; 80061; 82550; 82553; 83690; 83735; 83880; 84484; 85025; 85610; 93005; 94640; 96374; 99284; J1642; 94644

== ENCOUNTER 2021-10-02 03:27 | Emergency (ER) | payer MEDICARE ==
[2021-10-02 03:48] VITALS: BP 131/91
== END 2021-10-02 05:29 | disposition left against medical advice (07) ==
LOC: ED 03:27
DX: R06.02 Shortness of breath (principal); Z53.21 Procedure and treatment not carried out due to patient leaving prior to being seen by health care provider

== ENCOUNTER 2021-10-20 23:29 | Emergency (ER) | payer MEDICARE ==
--- NOTE | 2021-10-21 00:47 | Emergency Department Report ---
ED General Adult HPI - General Chief complaint: Dyspnea/Respdistress Stated complaint: MITCHELL/DISLODGED PORT Time Seen by Provider: 10/21/21 00:25 Source: patient Mode of arrival: Stretcher Limitations: No Limitations - History of Present Illness Initial comments: 60 yo M with h/o ESRD currently on hemodialysis who present with bleeding from his dialysis port on his right anterior upper chest. Pt says he must have slept wrong to break the attachment to the skin. Bleeding is minimal from direct pressure. Pt also reports some shortness of breath. He is oxygen dependent and denies any chest pain or palpitation. No fever or chills or any other modifying or associated factors. - Related Data Home Medications Medication Instructions Recorded Confirmed Last Taken diphenhydrAMINE [Benadryl CAP] 50 mg PO PRN PRN 02/24/18 04/26/21 02/23/18 Ferric Citrate (Nf) [Auryxia] 420 mg PO TIDWM 04/26/21 04/26/21 Unknown Levothyroxine Sodium [Synthroid] 200 mcg PO QDAY 04/26/21 04/26/21 Unknown Oxycodone HCl [oxyCODONE] 10 mg PO QID PRN 04/26/21 04/26/21 Unknown Previous Rx's Medication Instructions Recorded Last Taken Type Ondansetron [Zofran ODT TAB] 4 mg PO Q8HR PRN #10 tab.rapdis 11/03/17 Unknown Rx AtorvaSTATin 10 mg PO QHS tablet 01/16/18 02/22/18 Rx Pantoprazole [Protonix TAB] 40 mg PO DAILY #30 tablet 01/16/18 02/22/18 Rx carvediloL [Coreg] 6.25 mg PO BID #60 tablet 02/12/18 02/23/18 Rx Allergies Allergy/AdvReac Type Severity Reaction Status Date / Time Iodinated Contrast Media Allergy Unknown Hives Verified 07/09/21 17:10 Sulfa (Sulfonamide AdvReac Shortness Verified 07/09/21 17:10 Antibiotics) of Breath ED Review of Systems ROS: Stated complaint: MITCHELL/DISLODGED PORT Other details as noted in HPI Comment: All other systems reviewed and negative Constitutional: other (dialysis port dislodgement) ED Past Medical Hx - Past Medical History Previous Medical History?: Yes Hx Hypertension: Yes Hx Congestive Heart Failure: Yes Hx Diabetes: No Hx Renal Disease: Yes (t,th,s) Hx Asthma: No Hx COPD: No Hx HIV: No Additional medical history: Chronic pain in feet. O2 dependent 3L/NC - Surgical History Past Surgical History?: Yes Hx Pacemaker: Yes Additional Surgical History: AV fistula, port-a-cath - Social History Smoking Status: Never Smoker Substance Use Type: None - Medications Home Medications: Home Medications Medication Instructions Recorded Confirmed Last Taken Type Ondansetron [Zofran ODT TAB] 4 mg PO Q8HR PRN #10 tab.rapdis 11/03/17 04/26/21 Unknown Rx AtorvaSTATin 10 mg PO QHS tablet 01/16/18 04/26/21 02/22/18 Rx Pantoprazole [Protonix TAB] 40 mg PO DAILY #30 tablet 01/16/18 04/26/21 02/22/18 Rx carvediloL [Coreg] 6.25 mg PO BID #60 tablet 02/12/18 04/26/21 02/23/18 Rx diphenhydrAMINE [Benadryl CAP] 50 mg PO PRN PRN 02/24/18 04/26/21 02/23/18 History Ferric Citrate (Nf) [Auryxia] 420 mg PO TIDWM 04/26/21 04/26/21 Unknown History Levothyroxine Sodium [Synthroid] 200 mcg PO QDAY 04/26/21 04/26/21 Unknown History Oxycodone HCl [oxyCODONE] 10 mg PO QID PRN 04/26/21 04/26/21 Unknown History ED Physical Exam - General Limitations: No Limitations General appearance: alert, in no apparent distress - Head Head exam: Present: normal inspection - Eye Eye exam: Present: normal appearance Pupils: Present: normal accommodation - ENT ENT exam: Present: normal exam, normal orophraynx, mucous membranes moist - Neck Neck exam: Present: normal inspection. Absent: tenderness - Respiratory Respiratory exam: Present: normal lung sounds bilaterally, other (right subclavian dialysis port bleeding from the skin suture attachment). Absent: respiratory distress, accessory muscle use - Cardiovascular Cardiovascular Exam: Present: regular rate, normal rhythm, normal heart sounds - GI/Abdominal GI/Abdominal exam: Present: soft, normal bowel sounds. Absent: distended, tenderness - Extremities Exam Extremities exam: Present: normal inspection, normal capillary refill - Back Exam Back exam: Absent: tenderness - Neurological Exam Neurological exam: Present: alert, oriented X3 - Psychiatric Psychiatric exam: Present: normal mood - Skin Skin exam: Present: normal color ED Course Vital Signs 10/20/21 10/20/21 10/21/21 23:30 23:58 00:01 Temperature 98 F Pulse Rate 85 81 82 Respiratory 20 25 H 12 Rate Blood Pressure 148/107 133/96 O2 Sat by Pulse 100 100 98 Oximetry 10/21/21 10/21/21 10/21/21 00:15 00:25 00:31 Temperature 97.6 F Pulse Rate 83 86 Respiratory 18 22 Rate Blood Pressure 139/98 139/98 O2 Sat by Pulse 99 Oximetry 10/21/21 10/21/21 10/21/21 00:45 01:01 01:15 Temperature Pulse Rate 86 78 75 Respiratory 15 22 16 Rate Blood Pressure 139/98 128/88 128/88 O2 Sat by Pulse 100 100 99 Oximetry 10/21/21 10/21/21 10/21/21 01:31 01:45 02:01 Temperature Pulse Rate 85 74 88 Respiratory 17 22 26 H Rate Blood Pressure 131/99 131/99 138/105 O2 Sat by Pulse 99 98 98 Oximetry 10/21/21 02:15 Temperature Pulse Rate 81 Respiratory 18 Rate Blood Pressure 138/105 O2 Sat by Pulse 100 Oximetry - Reevaluation(s) Reevaluation #1: 10/21/21 03:03 permcath reattached with 4.0 ethlon suture x 2 on both sides ED Medical Decision Making - Radiology Data FINDINGS: SUPPORT DEVICES: Unchanged right Port-A-Cath. A right internal jugular vein perm catheter is in expected position, terminating over the proximal right atrium. HEART / MEDIASTINUM: Stable. LUNGS / PLEURA: No significant pulmonary abnormality. No significant pleural effusion. No pneumothorax. ADDITIONAL FINDINGS: No significant additional findings. IMPRESSION: 1. No acute abnormality of the chest. 2. Expected positioning of a right PermCath. - Medical Decision Making dialysis port dislodgment -- radiologist Dr Nitza Sorto consulted who suggested CXR first then to consider CT angio if needed-- CXR shows the permcath in its natural position so will go ahead and reattach with suture. Critical care attestation.: If time is entered above; I have spent that time in minutes in the direct care o f this critically ill patient, excluding procedure time. ED Disposition Clinical Impression: Port-A-Cath in place, Shortness of breath Disposition: 01 HOME / SELF CARE / HOMELESS Is pt being admited?: No Does the pt Need Aspirin: No Condition: Stable Instructions: Shortness of Breath, Adult, [id number] Additional Instructions: Continue your current medication and oxygen as prescribed by your primary doctor Call and discuss with your nephrology with your recent visit to the emergency room Please do not hesitate to call or return to emergency room if your bleeding started again or worsen Referrals: SHIVAM BARNES MD [Referring] - 3-5 Days Time of Disposition: 03:05
--- NOTE | 2021-10-21 01:15 | XRay Report ---
CHEST 1 VIEW 10/21/2021 12:58 AM INDICATION / CLINICAL INFORMATION: dialysis catheter displacement. History of blood leaking around dialysis catheter. Shortness of breat h. COMPARISON: One view of the chest from 08/10/2021. FINDINGS: SUPPORT DEVICES: Unchanged right Port-A-Cath. A right internal jugular vein perm catheter is in expec carlos position, terminating over the proximal right atrium. HEART / MEDIASTINUM: Stable. LUNGS / PLEURA: No significant pulmonary abnormality. No significant pleural effusion. No pneumothora x. ADDITIONAL FINDINGS: No significant additional findings. IMPRESSION: 1. No acute abnormality of the chest. 2. Expected positioning of a right PermCath. Signer Name: Gilles Sorto MD Signed: 10/21/2021 1:10 AM Workstation Name: [id number]
[2021-10-21 02:29] VITALS: BP 138/105
== END 2021-10-21 03:35 | disposition home or self-care (01) ==
LOC: ED 23:29
DX: R06.02 Shortness of breath (principal); Z45.2 Encounter for adjustment and management of vascular access device; I11.0 Hypertensive heart disease with heart failure; I50.9 Heart failure, unspecified; N28.9 Disorder of kidney and ureter, unspecified; Z98.890 Other specified postprocedural states; Z88.1 Allergy status to other antibiotic agents; Z91.09 Other allergy status, other than to drugs and biological substances; Z79.899 Other long term (current) drug therapy
CPT/HCPCS: 71045; 99283

== ENCOUNTER 2021-11-01 23:11 | Inpatient (IN) | payer MEDICARE ==
[2021-11-02] MEDS ORDERED: SODIUM CHLORIDE 0.9% 1000 ML 1,000 ML IV ONE (00:21)
[2021-11-02] MEDS ORDERED: PANTOPRAZOLE 40 MG INJ IV ONE (00:21)
[2021-11-02 04:13] LABS: Albumin 4.3 g/dL (3.9-5); Calcium 7.3 mg/dL (8.4-10.2)
[2021-11-02 04:17] LABS: Basophils # (Auto) 0.1 K/mm3 (0.0-0.1); Eosinophils # (Auto) 0.1 K/mm3 (0.0-0.4); Hematocrit 31.2 % (35.5-45.6); Hemoglobin 10.2 gm/dl (11.8-15.2); Lymphocytes # (Auto) 0.3 K/mm3 (1.2-5.4); Lymphocytes % (Auto) 4.8 % (13.4-35.0); Mean Corpuscular HGB Conc 33 % (32-34); Mean Corpuscular Volume 95 fl (84-94); Monocytes # (Auto) 0.5 K/mm3 (0.0-0.8); Monocytes % (Auto) 7.4 % (0.0-7.3); Platelet Count 106 K/mm3 (140-440); Red Blood Count 3.28 M/mm3 (3.65-5.03)
[2021-11-02 04:18] LABS: INR 1.41 (0.87-1.13)
[2021-11-02 04:23] VITALS: BP 132/96
[2021-11-02 04:32] LABS: Red Cell Distribution Width 22.8 % (13.2-15.2)
--- NOTE | 2021-11-02 05:28 | Emergency Department Report ---
ED General Adult HPI - General Chief complaint: GI Bleed Stated complaint: RECTAL BLEEDING Time Seen by Provider: 11/02/21 00:20 Source: patient Mode of arrival: Stretcher Limitations: No Limitations - History of Present Illness Initial comments: Missed dialysis on . Episodes of Rectal Bleeding and abdominal pain started yesterday. -: Gradual, hour(s) Location: abdomen Radiation: non-radiation - Related Data Home Medications Medication Instructions Recorded Confirmed Last Taken diphenhydrAMINE [Benadryl CAP] 50 mg PO PRN PRN 02/24/18 04/26/21 02/23/18 Ferric Citrate (Nf) [Auryxia] 420 mg PO TIDWM 04/26/21 04/26/21 Unknown Levothyroxine Sodium [Synthroid] 200 mcg PO QDAY 04/26/21 04/26/21 Unknown Oxycodone HCl [oxyCODONE] 10 mg PO QID PRN 04/26/21 04/26/21 Unknown Previous Rx's Medication Instructions Recorded Last Taken Type Ondansetron [Zofran ODT TAB] 4 mg PO Q8HR PRN #10 tab.rapdis 11/03/17 Unknown Rx AtorvaSTATin 10 mg PO QHS tablet 01/16/18 02/22/18 Rx Pantoprazole [Protonix TAB] 40 mg PO DAILY #30 tablet 01/16/18 02/22/18 Rx carvediloL [Coreg] 6.25 mg PO BID #60 tablet 02/12/18 02/23/18 Rx Allergies Allergy/AdvReac Type Severity Reaction Status Date / Time Iodinated Contrast Media Allergy Unknown Hives Verified 07/09/21 17:10 Sulfa (Sulfonamide AdvReac Shortness Verified 07/09/21 17:10 Antibiotics) of Breath ED Review of Systems ROS: Stated complaint: RECTAL BLEEDING Other details as noted in HPI Constitutional: denies: chills, fever Eyes: denies: eye pain, eye discharge, vision change ENT: denies: ear pain, throat pain Respiratory: denies: cough, shortness of breath, wheezing Cardiovascular: denies: chest pain, palpitations Endocrine: no symptoms reported Gastrointestinal: denies: abdominal pain, nausea, diarrhea Genitourinary: denies: urgency, dysuria Musculoskeletal: denies: back pain, joint swelling, arthralgia Skin: denies: rash, lesions Neurological: denies: headache, weakness, paresthesias Psychiatric: denies: anxiety, depression Hematological/Lymphatic: denies: easy bleeding, easy bruising ED Past Medical Hx - Past Medical History Previous Medical History?: Yes Hx Hypertension: Yes Hx Congestive Heart Failure: Yes Hx Diabetes: No Hx Renal Disease: Yes (t,th,s) Hx Asthma: No Hx COPD: No Hx HIV: No Additional medical history: Chronic pain in feet. O2 dependent 3L/NC - Surgical History Past Surgical History?: Yes Hx Pacemaker: Yes Additional Surgical History: AV fistula, port-a-cath - Social History Smoking Status: Unknown if ever smoked - Medications Home Medications: Home Medications Medication Instructions Recorded Confirmed Last Taken Type Ondansetron [Zofran ODT TAB] 4 mg PO Q8HR PRN #10 tab.rapdis 11/03/17 04/26/21 Unknown Rx AtorvaSTATin 10 mg PO QHS tablet 01/16/18 04/26/21 02/22/18 Rx Pantoprazole [Protonix TAB] 40 mg PO DAILY #30 tablet 01/16/18 04/26/21 02/22/18 Rx carvediloL [Coreg] 6.25 mg PO BID #60 tablet 02/12/18 04/26/21 02/23/18 Rx diphenhydrAMINE [Benadryl CAP] 50 mg PO PRN PRN 02/24/18 04/26/21 02/23/18 History Ferric Citrate (Nf) [Auryxia] 420 mg PO TIDWM 04/26/21 04/26/21 Unknown History Levothyroxine Sodium [Synthroid] 200 mcg PO QDAY 04/26/21 04/26/21 Unknown History Oxycodone HCl [oxyCODONE] 10 mg PO QID PRN 04/26/21 04/26/21 Unknown History ED Physical Exam - General Limitations: No Limitations General appearance: alert, in no apparent distress - Head Head exam: Present: atraumatic, normocephalic - Eye Eye exam: Present: normal appearance - ENT ENT exam: Present: mucous membranes moist - Neck Neck exam: Present: normal inspection - Respiratory Respiratory exam: Present: normal lung sounds bilaterally. Absent: respiratory distress - Cardiovascular Cardiovascular Exam: Present: regular rate, normal rhythm. Absent: systolic murmur, diastolic murmur, rubs, gallop - GI/Abdominal GI/Abdominal exam: Present: soft, normal bowel sounds - Rectal Rectal exam: Present: heme (+) stool - Extremities Exam Extremities exam: Present: normal inspection - Back Exam Back exam: Present: normal inspection - Neurological Exam Neurological exam: Present: alert, oriented X3 - Psychiatric Psychiatric exam: Present: normal affect, normal mood - Skin Skin exam: Present: warm, dry, intact, normal color. Absent: rash ED Course Vital Signs 11/01/21 11/02/21 11/02/21 23:11 00:43 00:45 Temperature 98 F Pulse Rate 84 81 82 Respiratory 18 14 19 Rate Blood Pressure 147/96 135/96 O2 Sat by Pulse 99 93 93 Oximetry 11/02/21 11/02/21 11/02/21 01:01 01:15 01:31 Temperature Pulse Rate 81 80 83 Respiratory 14 19 14 Rate Blood Pressure 135/96 135/96 135/96 O2 Sat by Pulse 95 96 94 Oximetry 11/02/21 11/02/21 11/02/21 01:45 02:01 02:15 Temperature Pulse Rate 81 87 83 Respiratory 23 11 L 19 Rate Blood Pressure 107/87 107/87 131/95 O2 Sat by Pulse 92 92 91 Oximetry 11/02/21 11/02/21 11/02/21 02:31 02:45 03:01 Temperature Pulse Rate 81 85 86 Respiratory 22 31 H 18 Rate Blood Pressure 131/95 131/95 131/95 O2 Sat by Pulse 91 90 95 Oximetry 11/02/21 11/02/21 11/02/21 03:15 03:31 03:45 Temperature Pulse Rate 76 84 85 Respiratory 21 12 18 Rate Blood Pressure 131/95 131/95 131/95 O2 Sat by Pulse 88 85 87 Oximetry 11/02/21 11/02/21 11/02/21 04:01 04:15 04:31 Temperature Pulse Rate 81 76 77 Respiratory 16 19 14 Rate Blood Pressure 131/95 132/96 132/96 O2 Sat by Pulse 96 92 96 Oximetry 11/02/21 11/02/21 11/02/21 04:45 05:01 05:15 Temperature Pulse Rate 85 79 82 Respiratory 10 L 24 13 Rate Blood Pressure 132/96 132/96 132/96 O2 Sat by Pulse 93 91 44 L Oximetry ED Medical Decision Making - Lab Data Result diagrams: 11/02/21 02:39 11/02/21 02:39 - EKG Data -: EKG Interpreted by Me EKG shows normal: sinus rhythm - EKG Data Interpretation: other (rbbb) - Medical Decision Making work up shwoed stable h.h heme poisitve rectal exam, ppi started will get CT , will be dialysed this am Critical care attestation.: If time is entered above; I have spent that time in minutes in the direct care of this critically ill patient, excluding procedure time. ED Disposition Clinical Impression: Bleeding per rectum, Hematochezia Disposition: ADMITTED INPATIENT Is pt being admited?: Yes Does the pt Need Aspirin: No Condition: Stable Referrals: CARLOS MAYORGA MD [Primary Care Provider] - 3-5 Days
[2021-11-02] MEDS ORDERED: ALBUTEROL 2.5 MG/3 ML NEBU IH PRN (06:08)
[2021-11-02] MEDS ORDERED: ACETAMINOPHEN 325 MG TAB PO PRN (06:08)
[2021-11-02] MEDS ORDERED: ONDANSETRON 4 MG/2 ML INJ IV PRN (06:08)
[2021-11-02] MEDS ORDERED: MORPHINE 2 MG/1 ML INJ IV PRN (06:08)
[2021-11-02] MEDS ORDERED: MORPHINE 4 MG/1 ML INJ IV PRN (06:08)
--- NOTE | 2021-11-02 06:17 | History and Physical Report ---
History of Present Illness Date of examination: 11/02/21 Date of admission: 11/02/21 Chief complaint: Rectal bleeding History of present illness: 61 years old male with history of end-stage renal disease on dialysis, diabetes, heart failure, hypertension was brought to the hospital because of rectal bleeding. As per the patient patient missed dialysis on Thursday. Patient complaining of abdominal pain and rectal bleeding started since yesterday. Patient denied any nausea vomiting. In the emergency room patient is found to have a hemoglobin of 10.2 and hemato crit 31.2, BUN of 76 and creatinine 11.0 so going to admit the patient we will put the patient on Protonix. Will consult GI and nephrology for evaluation Past History Past Medical History: diabetes, ESRD, heart failure, renal failure, other ( diabetes, dialysis, ESRD, GERD, heart failure, hypertension, hypothyroidism, other (H/O GI bleed), chronic pain in the feet. Oxygen dependent 3 L/min) Past Surgical History: Other (Pacemaker, AV fistula, Port-A-Cath) Social history: no significant social history Family history: hypertension Medications and Allergies Allergies Allergy/AdvReac Type Severity Reaction Status Date / Time Iodinated Contrast Media Allergy Unknown Hives Verified 07/09/21 17:10 Sulfa (Sulfonamide AdvReac Shortness Verified 07/09/21 17:10 Antibiotics) of Breath Home Medications Medication Instructions Recorded Confirmed Last Taken Type Ondansetron [Zofran ODT TAB] 4 mg PO Q8HR PRN #10 tab.rapdis 11/03/17 04/26/21 Unknown Rx AtorvaSTATin 10 mg PO QHS tablet 01/16/18 04/26/21 02/22/18 Rx Pantoprazole [Protonix TAB] 40 mg PO DAILY #30 tablet 01/16/18 04/26/21 02/22/18 Rx carvediloL [Coreg] 6.25 mg PO BID #60 tablet 02/12/18 04/26/21 02/23/18 Rx diphenhydrAMINE [Benadryl CAP] 50 mg PO PRN PRN 02/24/18 04/26/21 02/23/18 History Ferric Citrate (Nf) [Auryxia] 420 mg PO TIDWM 04/26/21 04/26/21 Unknown History Levothyroxine Sodium [Synthroid] 200 mcg PO QDAY 04/26/21 04/26/21 Unknown History Oxycodone HCl [oxyCODONE] 10 mg PO QID PRN 04/26/21 04/26/21 Unknown History Review of Systems All systems: negative Gastrointestinal: abdominal pain, hematochezia, other (Rectal bleeding) Exam - Constitutional Vitals: Temp Pulse Resp BP Pulse Ox 98 F 86 21 132/96 44 L 11/01/21 23:11 11/02/21 05:31 11/02/21 05:31 11/02/21 05:31 11/02/21 05:15 General appearance: Present: no acute distress, well-nourished - EENT Eyes: Present: PERRL ENT: hearing intact, clear oral mucosa - Neck Neck: Present: supple, normal ROM - Respiratory Respiratory effort: normal Respiratory: bilateral: CTA - Cardiovascular Heart Sounds: Present: S1 & S2. Absent: rub, click - Extremities Extremities: pulses symmetrical, No edema Peripheral Pulses: within normal limits - Abdominal General gastrointestinal: Present: soft, non-tender, non-distended, normal bowel sounds Male genitourinary: Present: normal - Integumentary Integumentary: Present: clear, warm, dry - Musculoskeletal Musculoskeletal: gait normal, strength equal bilaterally - Psychiatric Psychiatric: appropriate mood/affect, intact judgment & insight - Neurologic Neurologic: CNII-XII intact, moves all extremities Results - Labs CBC & Chem 7: 11/02/21 02:39 11/02/21 02:39 Labs: Laboratory Last Values WBC 6.4 K/mm3 (4.5-11.0) 11/02/21 02:39 RBC 3.28 M/mm3 (3.65-5.03) L 11/02/21 02:39 Hgb 10.2 gm/dl (11.8-15.2) L 11/02/21 02:39 Hct 31.2 % (35.5-45.6) L 11/02/21 02:39 MCV 95 fl (84-94) H 11/02/21 02:39 MCH 31 pg (28-32) 11/02/21 02:39 MCHC 33 % (32-34) 11/02/21 02:39 RDW 22.8 % (13.2-15.2) H 11/02/21 02:39 Plt Count 106 K/mm3 (140-440) L 11/02/21 02:39 Lymph % (Auto) 4.8 % (13.4-35.0) L 11/02/21 02:39 [place] % (Auto) 7.4 % (0.0-7.3) H 11/02/21 02:39 Eos % (Auto) 1.0 % (0.0-4.3) 11/02/21 02:39 Baso % (Auto) 1.0 % (0.0-1.8) 11/02/21 02:39 Lymph # (Auto) 0.3 K/mm3 (1.2-5.4) L 11/02/21 02:39 [place] # (Auto) 0.5 K/mm3 (0.0-0.8) 11/02/21 02:39 Eos # (Auto) 0.1 K/mm3 (0.0-0.4) 11/02/21 02:39 Baso # (Auto) 0.1 K/mm3 (0.0-0.1) 11/02/21 02:39 Seg Neutrophils % 85.8 % (40.0-70.0) H 11/02/21 02:39 Seg Neutrophils # 5.5 K/mm3 (1.8-7.7) 11/02/21 02:39 PT 18.9 Sec. (12.2-14.9) H 11/02/21 00:21 INR 1.41 (0.87-1.13) H 11/02/21 00:21 Sodium 144 mmol/L (137-145) 11/02/21 02:39 Potassium 5.0 mmol/L (3.6-5.0) 11/02/21 02:39 Chloride 98.0 mmol/L (98-107) 11/02/21 02:39 Carbon Dioxide 20 mmol/L (22-30) L 11/02/21 02:39 Anion Gap 31 mmol/L 11/02/21 02:39 BUN 76 mg/dL (9-20) H 11/02/21 02:39 Creatinine 11.0 mg/dL (0.8-1.3) H 11/02/21 02:39 Estimated GFR 6 ml/min 11/02/21 02:39 BUN/Creatinine Ratio 7 % 11/02/21 02:39 Glucose 81 mg/dL (75-100) 11/02/21 02:39 Lactic Acid 1.80 mmol/L (0.7-2.0) 11/02/21 02:39 Calcium 7.3 mg/dL (8.4-10.2) L 11/02/21 02:39 Total Bilirubin 0.90 mg/dL (0.1-1.2) 11/02/21 02:39 AST 41 units/L (5-40) H 11/02/21 02:39 ALT 18 units/L (7-56) 11/02/21 02:39 Alkaline Phosphatase 216 units/L (35-129) H 11/02/21 02:39 Total Protein 7.6 g/dL (6.3-8.2) 11/02/21 02:39 Albumin 4.3 g/dL (3.9-5) 11/02/21 02:39 Albumin/Globulin Ratio 1.3 % 11/02/21 02:39 Assessment and Plan VTE prophylaxis?: Mechanical Plan of care discussed with patient/family: Yes - Patient Problems (1) Bleeding per rectum Current Visit: Yes Status: Acute Plan to address problem: Admit the patient to the medical telemetry. NPO. D5 normal saline at the rate of 42 cc/h. Protonix 40 mg IV every 12 hours. Reconsult GI for evaluation. Recheck CBC in the morning (2) Hematochezia Current Visit: Yes Status: Acute Plan to address problem: NPO. D5 normal saline at the rate of 42 cc/h. Protonix 40 mg IV every 12 hours. Reconsult GI for evaluation. Recheck CBC in the morning (3) Abdominal pain Current Visit: No Status: Acute Plan to address problem: NPO. Protonix 40 mg IV every 12 hours. Morphine 2 mg IV every 4 hours as needed (4) CHF (congestive heart failure) Current Visit: No Status: Acute Qualifiers: Plan to address problem: Is stable. Avoid fluid overload. Daily weight. Continue home medication. Outpatient follow-up with cardiology (5) ESRD needing dialysis Current Visit: No Status: Acute Plan to address problem: Will consult nephrology for hemodialysis. Avoid nephrotoxic drug. Repeat BMP in the morning (6) Hypothyroidism Current Visit: No Status: Acute Plan to address problem: Synthroid 200 mcg p.o. daily. Continue home medication. (7) HTN (hypertension) Current Visit: No Status: Chronic Qualifiers: Hypertension type: essential hypertension Plan to address problem: Coreg 6.25 mg p.o. twice daily. Hydralazine 10 mg IV every 6 hours as needed. We will continue the home medication (8) DVT prophylaxis Current Visit: No Status: Acute Plan to address problem: SCD for DVT prophylaxis. Protonix 40 mg IV every 12 hours for GI prophylaxis. Patient is a full code
[2021-11-02] MEDS ORDERED: hydrALAZINE 20 MG/1 ML INJ IV PRN (06:22)
[2021-11-02] MEDS ORDERED: D5W/0.9% NACL 1,000 ML IV SCH (07:00)
[2021-11-02] MEDS ORDERED: LEVOTHYROXINE 100 MCG TAB PO SCH (07:00)
[2021-11-02] MEDS ORDERED: IPRATROPIUM/ALBUTEROL SULFATE 3 ML AMPUL.NEB IH SCH (08:00)
[2021-11-02] MEDS ORDERED: SODIUM CHLORIDE 0.9% 100 ML IV PRN (08:35)
[2021-11-02] MEDS ORDERED: carvediloL 6.25 MG TAB PO SCH (10:00)
[2021-11-02] MEDS ORDERED: PANTOPRAZOLE 40 MG INJ IV SCH (10:00)
[2021-11-02] MEDS ORDERED: LEVOTHYROXINE SODIUM 200 MCG PO SCH (10:00)
--- NOTE | 2021-11-03 14:40 | Electrocardiograph Report ---
[facility] Test Date: 2021-11-02 Test Time: 01:18:03 Pat Name: FELIPA LANDRUM Department: Room: [place] [address] Gender: M [employer] Conditioning [employer] Installer: SAMMY : 1960 Requested By: CAROLINE JAIMES Order Number: [id number] Reading MD: Malini Edmond Measurements Intervals [place] Rate: 82 P: 31 [place]: 84 QRS: -39 QRSD: 119 T: 77 QT: 445 QTc: 526 Interpretive Statements TECHNICALLY POOR TRACING - PLEASE REPEAT ECG Electronically Signed On 11-03-2021 14:39:45 EDT by Malini Edmond
--- NOTE | 2021-11-03 14:40 | Electrocardiograph Report ---
[facility] Test Date: 2021-11-02 Test Time: 01:18:55 Pat Name: FELIPA LANDRUM Department: Room: [place] [address] Gender: M Physician President: SAMMY : 1960 Requested By: BLANCA SHERWOOD Order Number: [id number] Reading MD: Malini Edmond Measurements Intervals [place] Rate: 83 P: 38 [place]: 204 QRS: -41 QRSD: 119 T: 85 QT: 439 QTc: 517 Interpretive Statements Sinus rhythm Ventricular bigeminy Incomplete left bundle branch block Consider anterior infarct Prolonged QT interval Compared to ECG 11/02/2021 01:18:03 ST (T wave) deviation no longer present Myocardial infarct finding still present Electronically Signed On 11-03-2021 14:39:50 EDT by Malini Edmond
== END 2021-11-02 07:05 | disposition left against medical advice (07) | DRG 377 ==
LOC: ED 23:11 → 4A 11-02 06:09
PROVIDERS: ADMIT Hospitalist; ATTEND Internal Medicine
DX: K92.2 Gastrointestinal hemorrhage, unspecified (principal); N18.6 End stage renal disease; I13.2 Hypertensive heart and chronic kidney disease with heart failure and with stage 5 chronic kidney disease, or end stage renal disease; K92.1 Melena; I50.9 Heart failure, unspecified; Z95.0 Presence of cardiac pacemaker; Z82.49 Family history of ischemic heart disease and other diseases of the circulatory system; E11.22 Type 2 diabetes mellitus with diabetic chronic kidney disease; Z99.2 Dependence on renal dialysis; K21.9 Gastro-esophageal reflux disease without esophagitis; E03.9 Hypothyroidism, unspecified; Z53.29 Procedure and treatment not carried out because of patient's decision for other reasons
CPT/HCPCS: 36415; 80053; 82140; 85025; 85610; 93005; 94640; G0378; C9113

== ENCOUNTER 2021-11-12 18:09 | Emergency (ER) | payer MEDICARE | END 2021-11-13 05:00 | disposition left against medical advice (07) | LOC: ED 18:09 | DX: M79.603 Pain in arm, unspecified (principal); Z53.21 Procedure and treatment not carried out due to patient leaving prior to being seen by health care provider ==